=== PATIENT | female | born 1990 | race Caucasian/White ===

== ENCOUNTER 2018-09-29 13:45 | Outpatient (CLI) | payer BC, SELFPAY ==
[2018-09-29 14:35] LABS: HCT 40.6 % (36.0-46.0); HGB 13.9 g/dL (12.0-15.5); Mean Corp. HGB Concentration 34.2 g/dL (32.0-36.0); Mean Corpuscular Hemoglobin 31.2 pg (27.0-33.0); Mean Corpuscular Volume 91.2 fL (80-95); Mean Platelet Volume 10.5 fL (8.0-11.0); Platelet Count 217 x1000/uL (130-400); RBC 4.45 m/cumm (4.00-5.20); RBC Distribution Width 13.4 % (11.7-14.6); White Blood Cell Count 10.36 k/cumm (4.4-10.8)
[2018-09-29 14:36] LABS: Bilirubin Negative (Negative); Blood Negative (Negative); Clarity Clear; Glucose Negative (Negative); Ketones Negative (Negative); Leukocyte Esterase Negative (Negative); Nitrite Negative (Negative); Specific Gravity 1.015 (1.005-1.025); Urobilinogen 0.2 EU/dL (Up TO 0.2); pH 6.5 (5-8)
[2018-09-29 15:39] LABS: HCG Quant, Pregnancy < 1 mIU/mL (1-3)
== END 2018-09-29 14:05 ==
PROVIDERS: PCP Nurse Practitioner; Visit Provider Nurse Practitioner Women's Health
DX: R10.2 Pelvic and perineal pain (principal)
CPT/HCPCS: 36415; 85027; 81003; 84702

== ENCOUNTER 2019-06-08 13:50 | Outpatient (REF) | payer OTHER, SELFPAY ==
[2019-06-08 18:58] LABS: HCT 39.1 % (36.0-46.0); HGB 12.9 g/dL (12.0-15.5); Mean Corpuscular Hemoglobin 30.9 pg (27.0-33.0); Mean Corpuscular Volume 93.8 fL (80-95); Mean Platelet Volume 11.5 fL (8.0-11.0); Platelet Count 184 x1000/uL (130-400); RBC 4.17 m/cumm (4.00-5.20); RBC Distribution Width 13.3 % (11.7-14.6); White Blood Cell Count 7.09 k/cumm (4.4-10.8)
[2019-06-08 19:08] LABS: Iron 81 ug/dL (50-175)
[2019-06-08 19:21] LABS: Anion Gap 10.6 mmol/L (3-11); BUN 12 mg/dL (7-18); CO2 25.4 mmol/L (21.0-32.0); Calcium 8.6 mg/dL (8.5-10.1); Chloride 105 mmol/L (98-107); Glucose 97 mg/dL (70-100); Potassium 3.6 mmol/L (3.5-5.1); Sodium 141 mmol/L (136-145); TSH (W/Ref FT4) 1.08 uIU/mL (0.36-3.74)
[2019-06-08 20:19] LABS: Vitamin B12 707 pg/mL (193-986)
[2019-06-11 08:13] LABS: Vitamin D 25 Total 28.9 ng/ml (30-100)
== END 2019-06-08 14:10 ==
LOC: NCHCN 13:50
PROVIDERS: PCP Nurse Practitioner Family; Visit Provider Nurse Practitioner Family
DX: R53.83 Other fatigue (principal)
CPT/HCPCS: 80048; 82306; 85027; 82607; 83540; 84443

== ENCOUNTER 2019-06-21 11:58 | Emergency (ER) | payer OTHER, SELFPAY ==
[2019-06-21 12:01] VITALS: BP 124/78; PULSE 76; RESP 14; TEMP 37.1; O2SAT 98
--- NOTE | 2019-06-21 12:12 | DI.RAD_ITS ---
SYMPTOM/DIAGNOSIS: INJURY, PAIN RIGHT FOOT: Three views. There is an oblique fracture of the mid shaft of the proximal phalanx of the right little toe. The distal fracture is angulated laterally. No other fracture or dislocation is seen. There is soft tissue swelling noted. IMPRESSION: Displaced fracture involving the proximal phalanx of the right fifth toe.
--- NOTE | 2019-06-21 12:51 | ED.GENADUL_ITS ---
Discharge Plan Disposition Patient Disposition: HOME Condition: Stable Discharge Details Chief Complaint: Orthopedic Clinical Impression: Toe fracture, right Primary Care Provider: Neda Arnold ED Provider: Jaspal Kuhn Home Meds and New Rx's Prescriptions: No Action sertraline 50 mg tablet 25 mg PO DAILY Qty: 30 RF: 5 Kaila 1 EACH intrauterine device 1 ea Intrauterine DAILY Qty: 1 RF: 0 lorazepam [Ativan] 1 mg tablet 0.5 mg PO HS Qty: 30 RF: 3 ondansetron 4 MG tablet,disintegrating 4 mg PO Q8H PRN (Reason: Nausea) Qty: 12 RF: 0 cholecalciferol (vitamin D3) [Vitamin D3] 2,000 unit Tablet 2,000 unit PO DAILY RF: 0 Discharge Instructions Instructions: Toe Fracture (ED) Additional Instructions: You may continue to take [id number] pain medication as needed for discomfort and use the provided hard soled shoe or purchase shoe insert and use this for the next 4 weeks. Feel free to call podiatry office for arrangement of follow-up appointment as needed for reassessment. Stand Alone Forms: Work Release Referrals: Maurisio Wheeler DPM [[facility] STAFF PHYSICIAN] - (As needed for reassessment in the next 1 to 2 weeks) Discharge Data Discharge Date/Time-TO BE ENTERED AT DEPARTURE: 06/21/19 13:07 Medical Decision Making Right fifth digit toe injury that occurred this morning. Physical exam shows right fifth toe that has some lateral rotation otherwise unremarkable examination of the foot. Plan to do radiological imaging for concern of fracture versus dislocation. Review of radiologic imaging shows a fracture of the proximal phalanx of the fifth digit. Soham tape and hardsole shoe placed along with mild physical reduction. Patient to follow-up with Dr. Wheeler as needed. Patient given work note. Return precautions discussed. After discussion of diagnosis and plan of care patient has no further needs, questions, or concerns and states clear understanding to return to the emergency department for any worsening symptoms. HPI General Mode of arrival: ambulatory . Date/Time Provider Initiated Documentation: 06/21/19 12:08 . Limitations to Documentation: no limitations . Information obtained by: patient . History of Present Illness 29 year old F presents to the emergency department with the chief complaint of right 5th toe injury, described as mild, with intensity rated at 2. and is localized to the right and lower extremity. Patient started experiencing this hour(s) (2) and it has been constant. Movement worsens symptoms . Patient notes no other symptoms.. Related Data Home Medications Medication Instructions Recorded Confirmed Kaila 1 ea INTRAUTERINE DAILY #1 implant 10/02/15 06/21/19 ondansetron 4 mg PO Q8H PRN #12 tab.rapdis 12/09/17 06/21/19 lorazepam 1 mg tablet 0.5 mg PO HS #30 tab-cap 10/11/18 06/21/19 sertraline 50 mg tablet 25 mg PO DAILY #30 tab 11/03/18 06/21/19 cholecalciferol (vitamin D3) 2,000 unit PO DAILY 06/21/19 06/21/19 [Vitamin D3] Previous Rx's Medication Instructions Recorded ondansetron 4 mg PO Q8H PRN #12 tab.rapdis 12/09/17 lorazepam 1 mg tablet 0.5 mg PO HS #30 tab-cap 10/11/18 sertraline 50 mg tablet 25 mg PO DAILY #30 tab 11/03/18 Allergies Allergy/AdvReac Type Severity Reaction Status Date / Time No Known Allergies Allergy Unverified 06/21/19 12:08 General Stated Complaint: Orthopedic TAMIKO: 4 Review of Systems Musculoskeletal Reports as per HPI, Denies numbness and Denies tingling Integumentary/Breasts Denies rash, Denies sores and Denies wounds Neurologic Denies numbness and Denies tingling PFSH Medical History Cholelithiasis GERD (gastroesophageal reflux disease) Surgical History Cholecystectomy Social History Smoking/Tobacco Use Status: Never Alcohol Intake: never Drug use: Never Substance use type: does not use Number of Children: 1 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 What type of physical activity do you participate in: none Do you feel safe at home: Yes Do you feel safe in your relationship?: Yes Exam Const General: cooperative and no acute distress Orientation: alert, awake and oriented x3 Resp Effort & Inspection: normal respiratory effort and able to speak in complete sentences Cardio Rate: regular rate Rhythm: regular rhythm Extrem General: normal exam except as noted Left lower extremity: foot Details: abnormal to inspection Details: a deformity Location: of the 5th digit (Lateral rotation), tenderness Location: of another digit Location: the 5th digit; not of the base of the 5th metatarsal, abnormal ROM of toe Details: pain with active ROM Location: of the 5th digit and pain with passive ROM Location: of the 5th digit and vascular exam Details: dorsalis pedis pulse present and normal capillary refill Course Vital Signs Temperature 37.1 C 06/21/19 12:01 Pulse 76 06/21/19 12:01 Respiratory Rate 14 06/21/19 12:01 Blood Pressure 124/78 06/21/19 12:01 Pulse Oximetry 98 06/21/19 12:01 Temperature 37.1 C 06/21/19 12:01 Temperature Source Skin 06/21/19 12:01 Pulse 76 06/21/19 12:01 Respiratory Rate 14 06/21/19 12:01 Respiratory Effort 06/21/19 12:07 Blood Pressure 124/78 06/21/19 12:01 Blood Pressure Position Sitting 06/21/19 12:01 Pulse Oximetry 98 06/21/19 12:01 Oxygen Delivery Method Room Air 06/21/19 12:01 Oxygen Flow Rate 0 06/21/19 12:01 Pain Level 2 06/21/19 12:01 Comment 06/21/19 12:01
[2019-06-21 13:00] VITALS: BP 124/78; PULSE 76; RESP 14; TEMP 37.1; O2SAT 98
== END 2019-06-21 13:07 | disposition home or self-care (01) ==
LOC: ER 13:04
PROVIDERS: Emergency Provider Nurse Practitioner Family; PCP Nurse Practitioner Family
DX: S92.511A Displaced fracture of proximal phalanx of right lesser toe(s), initial encounter for closed fracture (principal); W22.03XA Walked into furniture, initial encounter
CPT/HCPCS: 28510; 73630

== ENCOUNTER 2019-07-19 16:27 | Outpatient (REF) | payer OTHER, SELFPAY ==
--- NOTE | 2019-07-19 16:10 | PAPFT_PTH ---
PATIENT: Ailyn Webb LOC: [facility] U#:[id number] AGE/SX: 29/F ROOM: RE07/19/[address]: Heather Christie MD : 1990 BED: DIS: 07/19/2019 SPEC #: [id number] RECD: 07/19/19 17:48 STATUS: ROC REQ #: [id number] EDNA: 07/19/19 16:[address]: Heather Christie DEPT: [facility] Cytology RECD BY: Lachelle Nicholson ENTERED: 07/19/19 17:49 SP TYPE: PAPFT OTHR DR: Neda Arnold Tissues: 1 - CX/ENDOCX FOR PAP SMEARS Procedures: PAP THIN PREP/[facility] Screening Comments: [id number]
== END 2019-07-19 16:47 ==
LOC: LBN 16:27
PROVIDERS: PCP Nurse Practitioner Family; Visit Provider Obstetrics & Gynecology
DX: Z12.4 Encounter for screening for malignant neoplasm of cervix (principal)
CPT/HCPCS: 88142

== ENCOUNTER 2019-11-13 13:21 | Outpatient (REF) | payer OTHER, SELFPAY ==
[2019-11-13 14:07] LABS: Bilirubin Negative (Negative); Blood Trace-intact (Negative); Clarity Clear (Clear); Glucose Negative (Negative); Ketones Negative (Negative); Leukocyte Esterase Negative (Negative); Nitrite Negative (Negative); Specific Gravity <= 1.005 (1.005-1.025); Urobilinogen 0.2 EU/dL (Up TO 0.2)
[2019-11-13 14:22] LABS: Bacteria Negative HPF (Negative); C & S Indicated? No; Casts Negative LPF (Negative); Crystals Negative HPF (Negative); Epithelial Cells Rare HPF (Negative); Mucus Negative (Negative); WBC 0-2 HPF (0-5)
== END 2019-11-13 13:41 ==
LOC: NCHCN 13:21
PROVIDERS: PCP Nurse Practitioner Family; Visit Provider Nurse Practitioner Family
DX: R39.9 Unspecified symptoms and signs involving the genitourinary system (principal)
CPT/HCPCS: 81003; 81015

== ENCOUNTER 2020-11-28 11:29 | Outpatient (CLI) | payer OTHER, SELFPAY ==
--- NOTE | 2020-11-28 11:15 | DI.RAD_ITS ---
EXAM: XR KNEE LT 3V AP,LAT,CALLUM CLINICAL HISTORY: L medial knee pain. TECHNIQUE: 2D digital imaging was performed. COMPARISON: No exams were available for comparison FINDINGS: There is no evidence of fracture or joint effusion. No degenerative changes. No osseous lesions nor osteochondral defects. Bone density is age-appropriate IMPRESSION: No significant radiographic findings on these three views of the left knee. DATA REPOSITORY: RADIATION DOSE DELIVERED:
== END 2020-11-28 11:49 ==
PROVIDERS: PCP Student in an Organized Health Care Education/Training Program; Referring Provider Student in an Organized Health Care Education/Training Program; Visit Provider Student in an Organized Health Care Education/Training Program
DX: M25.562 Pain in left knee (principal)
CPT/HCPCS: 73562

== ENCOUNTER 2020-12-12 03:13 | Outpatient (CLI) | payer OTHER, SELFPAY ==
--- NOTE | 2020-12-12 07:00 | DI.MRI_ITS ---
EXAM: MR LOWER JOINT LT WO CLINICAL HISTORY: locking and pain of L knee,INTERNAL DERANGEMENT,M23.92. TECHNIQUE: Multiplanar multisequence MRI was performed. COMPARISON: CR XR KNEE LT 3V AP,LAT,CALLUM from 11/28/2020 CR XR KNEE LT 3V AP,LAT,CALLUM from 11/28/2020 FINDINGS: There is a somewhat linear area of low T1, high T2 signal in the medial tibial metaphysis which is weathers spicious for a hairline fracture. There is some surrounding edema in the medial tibial plateau. The articular surfaces are not involved. There is mild edema in the distal femoral metaphysis and media l femoral condyle that is not linear. The cruciate and collateral ligaments and extensor mechanism appear intact. There is normal quantity of joint fluid. There is a small amount of amorphous intermediate signal in the posterior horn of t he medial meniscus but no evidence of a discrete tear. The cartilage over the patella, femoral condy les and tibial plateaus appears intact. IMPRESSION: Findings consistent with incomplete hairline fracture of the medial tibial metaphysis. No ligament or meniscal tear is seen. DATA REPOSITORY:
== END 2020-12-12 03:14 ==
LOC: DI 03:14
PROVIDERS: PCP Student in an Organized Health Care Education/Training Program; Visit Provider Student in an Organized Health Care Education/Training Program
DX: M23.92 Unspecified internal derangement of left knee (principal); M25.562 Pain in left knee
CPT/HCPCS: 73721

== ENCOUNTER 2020-12-31 17:41 | Outpatient (REF) | payer OTHER, SELFPAY ==
[2020-12-31 18:30] LABS: Abs Immature Grans 0.02 10^3/uL (0.0-0.06); Absolute Basophil Count 0.04 10^3/uL (0.0-0.2); Absolute Lymphocyte Count 2.95 10^3/uL (1.2-3.4); Absolute Monocyte Count 0.59 10^3/uL (0.1-0.8); Absolute Neutrophil Count 5.14 10^3/uL (1.2-6.7); Basophils % 0.5; Eosinophils % 1.1; HCT 38.6 % (36.0-46.0); Immature Grans % 0.2; Lymphocytes % 33.4; MCH 30.6 pg (27.0-33.0); MCHC 33.7 % (32.0-36.0); MCV 90.8 fL (80-95); MPV 10.9 fL (8.0-11.0); Monocytes % 6.7; Neutrophils % 58.1; Nucleated RBC 0 %; Platelet Count 216 10^3/uL (130-400); RBC 4.25 10^6/uL (3.93-5.22); RDW 12.7 % (11.7-14.6); RDW-SD 41.8 fL; WBC 8.84 10^3/uL (4.4-10.8)
[2020-12-31 20:12] LABS: ALT 25 U/L (14-59); AST 16 U/L (15-37); Albumin 4.4 g/dL (3.4-5.0); Alkaline Phosphatase 62 U/L (46-116); BUN 17 mg/dL (7-18); Bilirubin, Total 0.4 mg/dL (0.2-1.0); CO2 24.9 mmol/L (21.0-32.0); CREATININE 0.7 mg/dL (0.55-1.02); Glucose 98 mg/dL (74-106); Magnesium 2.1 mg/dL (1.8-2.4); Total Protein 7.5 g/dL (6.4-8.2)
[2020-12-31 20:16] LABS: Anion Gap 10.1 mmol/L (3-11); Chloride 105 mmol/L (98-107); Potassium 3.2 mmol/L (3.5-5.1); Sodium 140 mmol/L (136-145)
[2021-01-01 05:06] LABS: Vitamin D 25 Total 42.2 ng/ml (30-100)
== END 2020-12-31 17:42 | disposition home or self-care (01) ==
LOC: LBN 17:41
PROVIDERS: PCP Student in an Organized Health Care Education/Training Program; Visit Provider Student in an Organized Health Care Education/Training Program
DX: D64.9 Anemia, unspecified (principal); R53.83 Other fatigue; E46 Unspecified protein-calorie malnutrition; K21.9 Gastro-esophageal reflux disease without esophagitis; R93.7 Abnormal findings on diagnostic imaging of other parts of musculoskeletal system
CPT/HCPCS: 80053; 82306; 83735; 85025

== ENCOUNTER 2021-01-27 08:50 | Outpatient (CLI) | payer OTHER, SELFPAY ==
--- NOTE | 2021-01-27 10:00 | DI.DEXA_ITS ---
EXAM: XR DEXA BONE DENSITY W/WO JOSEPHINE CLINICAL HISTORY: Insufficiency fx of tibia, internal derangement of lt knee, M84.496S,M23.92 TECHNIQUE: Routine DEXA evaluation of the lumbar spine, hip, or forearm. COMPARISON: No exams were available for comparison FINDINGS: Performed on a Hologic unit. Lateral image: No compression fracture evident. Lumbar Spine total T-score: -2.0 Hip total T-score:-1.9. Independent reading at the femoral neck yields a T-score of -2.2 Forearm total T-score: -1.8 IMPRESSION: Bone mineral density measures in the osteopenia range. Fracture risk is moderate. Note: Any spine fracture indicates 5x risk for subsequent spine fracture and 2x risk for subsequent h ip fracture. World Health Organization criteria for BMD interpretation classify patients: Normal...... T- Score at or above -1.0 Osteopenic... T- Score between -1.0 and -2.5 Osteoporosis... T-Score at or below -2.5
== END 2021-01-27 09:10 ==
PROVIDERS: PCP Student in an Organized Health Care Education/Training Program; Visit Provider Student in an Organized Health Care Education/Training Program
DX: M85.88 Other specified disorders of bone density and structure, other site (principal); M23.92 Unspecified internal derangement of left knee; M84.46 Pathological fracture, tibia and fibula
CPT/HCPCS: 77080

== ENCOUNTER 2021-02-21 11:10 | Outpatient (CLI) | payer OTHER, SELFPAY ==
[2021-02-21 13:33] LABS: Calcium 8.8 mg/dL (8.5-10.1); TSH 0.99 uIU/mL (0.36-3.74)
[2021-02-23 11:30] LABS: Parathyroid Hormone,Intact 35 pg/mL (19-88)
== END 2021-02-21 11:11 | disposition home or self-care (01) ==
LOC: LBO 11:13
PROVIDERS: PCP Student in an Organized Health Care Education/Training Program; Visit Provider Internal Medicine Endocrinology, Diabetes & Metabolism
DX: M81.0 Age-related osteoporosis without current pathological fracture (principal)
CPT/HCPCS: 36415; 82310; 82340; 83970; 84443

== ENCOUNTER 2021-10-02 16:05 | Outpatient (CLI) | payer OTHER, SELFPAY ==
[2021-10-02 17:56] LABS: ALT 24 U/L (14-59); AST 18 U/L (15-37); Albumin 4.4 g/dL (3.4-5.0); Alkaline Phosphatase 47 U/L (46-116); Anion Gap 12.8 mmol/L (3-11); BUN 16 mg/dL (7-18); Bilirubin, Total 0.4 mg/dL (0.2-1.0); CO2 26.2 mmol/L (21.0-32.0); CREATININE 0.7 mg/dL (0.55-1.02); Calcium 9.2 mg/dL (8.5-10.1); Chloride 101 mmol/L (98-107); Folate 12.2 ng/mL (8.6-20.0); Glucose 86 mg/dL (74-106); Magnesium 2.1 mg/dL (1.8-2.4); Potassium 3.6 mmol/L (3.5-5.1); Sodium 140 mmol/L (136-145); Total Protein 7.4 g/dL (6.4-8.2); Vitamin B12 1089 pg/mL (193-986)
[2021-10-05 00:30] LABS: Vitamin D 25 Total 40.8 ng/mL (30-100)
== END 2021-10-02 16:06 | disposition home or self-care (01) ==
LOC: LBO 16:07
PROVIDERS: PCP Student in an Organized Health Care Education/Training Program; Visit Provider Student in an Organized Health Care Education/Training Program
DX: E87.6 Hypokalemia; K90.9 Intestinal malabsorption, unspecified; R42 Dizziness and giddiness; G62.9 Polyneuropathy, unspecified; E83.42 Hypomagnesemia
CPT/HCPCS: 36415; 80053; 82306; 82607; 82746; 83735

== ENCOUNTER 2022-01-29 00:39 | Outpatient (CLI) | payer OTHER, SELFPAY ==
--- NOTE | 2022-01-29 13:45 | DI.MRI_ITS ---
Exam(s) MR LOWER JOINT LT WO EXAM: MR LOWER JOINT LT WO CLINICAL HISTORY: ? STRESS FX ON LT,REEVALUATE. TECHNIQUE: Multiplanar multisequence MRI was performed. COMPARISON: MR MR LOWER JOINT LT WO from 12/12/2020 FINDINGS: BONES: There is no fracture or contusion pattern. The proximal metaphyseal fracture appears healed. There is normal signal in the bone marrow. JOINTS: Articular cartilage is unremarkable. No effusion is present. TENDONS: Extensor mechanism: Unremarkable. Medial retinaculum: Unremarkable. Lateral retinaculum: Unremarkable. Popliteus: Unremarkable. MUSCLES: Unremarkable. MENISCI: No evidence of a tear. There is again seen nonspecific intermediate signal in the posterior horn of the medial meniscus. The lateral meniscus is unremarkable. SOFT TISSUES: Unremarkable. LIGAMENTS: Anterior Cruciate: Unremarkable. Posterior Cruciate: Unremarkable. Medial Collateral:Unremarkable. Lateral Collateral: Unremarkable. OTHER: IMPRESSION: 1. Resolution of the proximal tibial fracture. No acute fracture is identified. 2. No acute meniscal or ligament tear. DATA REPOSITORY:
--- NOTE | 2022-01-29 14:30 | DI.MRI_ITS ---
Exam(s) MR LOWER JOINT RT WO EXAM: MR LOWER JOINT RT WO CLINICAL HISTORY: RT KNEE PAIN, ? HAIRLINE FX. TECHNIQUE: Multiplanar multisequence MRI was performed. COMPARISON: MR MR LOWER JOINT LT WO from 01/29/2022 FINDINGS: BONES: There is no fracture or contusion pattern. JOINTS: Articular cartilage is unremarkable. No effusion is present. TENDONS: Extensor mechanism: Unremarkable. Medial retinaculum: Unremarkable. Lateral retinaculum: Unremarkable. Popliteus: Unremarkable. MUSCLES: Unremarkable. MENISCI: The medial meniscus is unremarkable. The lateral meniscus is unremarkable. SOFT TISSUES: Unremarkable. LIGAMENTS: Anterior Cruciate: Unremarkable. Posterior Cruciate: Unremarkable. Medial Collateral:Unremarkable. Lateral Collateral: Unremarkable. OTHER: There is a small cyst associated with the proximal tibial fibular joint. It has a benign appe arance. IMPRESSION: 1. No evidence of an occult fracture or avascular necrosis. 2. No evidence of a meniscal or ligament tear. DATA REPOSITORY:
== END 2022-01-29 00:59 ==
PROVIDERS: PCP Student in an Organized Health Care Education/Training Program; Visit Provider Student in an Organized Health Care Education/Training Program
DX: M25.561 Pain in right knee (principal); Z87.81 Personal history of (healed) traumatic fracture
CPT/HCPCS: 73721

== ENCOUNTER 2022-02-23 19:01 | Outpatient (REF) | payer OTHER, SELFPAY ==
[2022-02-23 09:43] LABS: Source Nasal/Nares
[2022-02-23 10:42] LABS: COVID-19 PCR Negative (Negative)
== END 2022-02-23 19:02 | disposition home or self-care (01) ==
LOC: LBN 19:01
PROVIDERS: PCP Student in an Organized Health Care Education/Training Program; Visit Provider Obstetrics & Gynecology
DX: Z20.822 Contact with and (suspected) exposure to COVID-19 (principal)
CPT/HCPCS: 87635

== ENCOUNTER 2022-02-26 16:30 | Outpatient (REF) | payer OTHER, SELFPAY ==
[2022-02-28 07:22] LABS: Influenza B RNA Result Negative (Negative); RSV RNA Result Negative (Negative)
[2022-02-28 09:21] LABS: Influenza A RNA Result Positive (Negative)
== END 2022-02-26 16:31 | disposition home or self-care (01) ==
LOC: LBN 16:30
PROVIDERS: PCP Student in an Organized Health Care Education/Training Program; Visit Provider Family Medicine
DX: J06.9 Acute upper respiratory infection, unspecified (principal); R09.89 Other specified symptoms and signs involving the circulatory and respiratory systems
CPT/HCPCS: 87631

== ENCOUNTER 2022-03-04 12:27 | Outpatient (CLI) | payer OTHER, SELFPAY | END 2022-03-04 12:28 | disposition home or self-care (01) | LOC: LBO 12:29 | PROVIDERS: PCP Student in an Organized Health Care Education/Training Program; Visit Provider Obstetrics & Gynecology ==

== ENCOUNTER 2022-05-06 16:02 | Outpatient (REF) | payer OTHER, SELFPAY ==
--- NOTE | 2022-05-06 15:45 | PAPFT_PTH ---
PATIENT: Ailyn Webb LOC: [facility] U#:[id number] AGE/SX: 32/F ROOM: RE05/06/[address]: Bonita Salcido : 1990 BED: DIS: 05/06/2022 SPEC #: [id number] RECD: 05/07/22 09:15 STATUS: ROC REDenis #: [id number] EDNA: 05/06/22 15:[address]: Bonita Salcido DEPT: [facility] Cytology RECD BY: Tanesha Pillai ENTERED: 05/07/22 09:18 SP TYPE: PAPFT OTHR DR: Farida Samuels DO Tissues: 1 - CX/ENDOCX FOR PAP SMEARS Procedures: PAP THIN PREP/[facility] Screening HPV DNA PROBE Comments: [id number]
== END 2022-05-06 16:03 | disposition home or self-care (01) ==
LOC: LBN 16:02
PROVIDERS: PCP Student in an Organized Health Care Education/Training Program; Visit Provider Obstetrics & Gynecology Gynecology
DX: Z12.4 Encounter for screening for malignant neoplasm of cervix (principal); Z11.51 Encounter for screening for human papillomavirus (HPV)
CPT/HCPCS: 88142; 87624

== ENCOUNTER 2022-06-07 04:02 | Outpatient (CLI) | payer OTHER, SELFPAY ==
[2022-06-07 10:27] LABS: Anion Gap 6.6 mmol/L (3-11); BUN 11 mg/dL (7-18); CO2 28.4 mmol/L (21.0-32.0); CREATININE 0.6 mg/dL (0.55-1.02); Calcium 8.9 mg/dL (8.5-10.1); Chloride 102 mmol/L (98-107); Glucose 74 mg/dL (74-106); Magnesium 1.9 mg/dL (1.8-2.4); Potassium 3.6 mmol/L (3.5-5.1); Sodium 137 mmol/L (136-145)
== END 2022-06-07 04:03 | disposition home or self-care (01) ==
LOC: LBO 04:02
PROVIDERS: PCP Student in an Organized Health Care Education/Training Program; Visit Provider Student in an Organized Health Care Education/Training Program
DX: E87.6 Hypokalemia (principal); E46 Unspecified protein-calorie malnutrition; K21.9 Gastro-esophageal reflux disease without esophagitis
CPT/HCPCS: 36415; 80048; 83735

== ENCOUNTER 2022-08-13 09:41 | Outpatient (CLI) | payer OTHER, SELFPAY ==
--- NOTE | 2022-08-13 09:45 | RT.EKG_ITS ---
APPROVED REPORT Exam: Resting ECG Reason for Exam: request of Sonali Akers Patient Location: O HR:66 bpm ECG Measurements Heart Rate 66 AXIS AZ 153 P 91 QRSd 102 QRS 51 QT 393 T 31 QTc 412 Conclusion Sinus rhythm...normal P axis, V-rate 50- 99 Normal Electrocardiogram
== END 2022-08-13 09:42 | disposition home or self-care (01) ==
PROVIDERS: PCP Student in an Organized Health Care Education/Training Program; Visit Provider Student in an Organized Health Care Education/Training Program
DX: R00.2 Palpitations
CPT/HCPCS: 93010

== ENCOUNTER → 2022-08-17 02:49 | Outpatient (CLI) | payer OTHER, SELFPAY ==
--- NOTE | 2022-08-17 06:30 | DI.RAD_ITS ---
Exam(s) XR CHEST 2V PA LATERAL EXAM: XR CHEST 2V PA LATERAL CLINICAL HISTORY: eval for pericardial effusion,HEART PALPITATIONS,R00.2 TECHNIQUE: 2D digital imaging was performed of the chest. Two images were obtained. PA and lateral views were obtained. COMPARISON: CR ABD FLAT UPRIGHT PA CHEST from 02/13/2011 FINDINGS: MEDIASTINUM: Normal. HEART: Normal. Cardiac silhouette has a normal appearance. PULMONARY VASCULATURE: Normal. LUNGS: Clear. PLEURAL SPACE: No pleural effusion or pneumothorax. BONE:Within normal limits for the patient's age. OTHER FINDINGS:Normal. IMPRESSION: No acute pulmonary findings. DATA REPOSITORY: RADIATION DOSE DELIVERED:
== END ==
PROVIDERS: PCP Student in an Organized Health Care Education/Training Program; Visit Provider Student in an Organized Health Care Education/Training Program
DX: R00.2 Palpitations (principal); R06.02 Shortness of breath
CPT/HCPCS: 71046

== ENCOUNTER 2022-08-17 14:15 | Outpatient (CLI) | payer OTHER, SELFPAY | END 2022-08-17 14:16 | disposition home or self-care (01) | PROVIDERS: PCP Student in an Organized Health Care Education/Training Program; Visit Provider Student in an Organized Health Care Education/Training Program | DX: R00.2 Palpitations (principal) | CPT/HCPCS: 93246 ==

== ENCOUNTER 2022-09-20 10:10 | Outpatient (CLI) | payer OTHER, SELFPAY ==
--- NOTE | 2022-09-20 10:23 | W.CARDEVENT ---
Date of service: 09/20/22 Time of Service: 10:23 Cardiac Event Recorder Referring Provider:: Farida Samuels Indications:: Palpitations Cardiac Event Note: This is a cardiac event monitor ordered for palpitations Rhythm throughout was sinus with an average heart rate of 78. Minimum was 49, maximum 165 A total of 10 isolated premature ventricular contractions were recorded There was no atrial fibrillation, no high-grade AV block, no supraventricular tachycardia, no pauses greater than 3 seconds Patient symptoms were reported. These were associated with sinus rhythm at 70, sinus tachycardia at 104, sinus rhythm at 68, sinus rhythm at 81, sinus rhythm at 97. There was no correlation to any significant dysrhythmia
== END 2022-09-20 10:11 | disposition home or self-care (01) ==
LOC: CARDOPNVT 10:10
PROVIDERS: PCP Student in an Organized Health Care Education/Training Program; Visit Provider Internal Medicine Cardiovascular Disease
DX: R00.2 Palpitations (principal); I49.3 Ventricular premature depolarization
CPT/HCPCS: 93248

== ENCOUNTER 2022-10-21 12:54 | Outpatient (CLI) | payer OTHER, SELFPAY ==
[2022-10-21 13:30] LABS: Abs Immature Grans 0.03 10^3/uL (0.0-0.06); Absolute Basophil Count 0.06 10^3/uL (0.0-0.2); Absolute Eosinophil Count 0.24 10^3/uL (0.0-0.7); Absolute Monocyte Count 0.65 10^3/uL (0.1-0.8); Absolute Neutrophil Count 4.89 10^3/uL (1.2-6.7); Basophils % 0.8; Eosinophils % 3.1; HGB 12.8 g/dL (11.2-15.7); Immature Grans % 0.4; Lymphocytes % 24.5; MCH 31.1 pg (27.0-33.0); MCHC 32.8 % (32.0-36.0); MCV 95 fL (80-95); MPV 10.6 fL (8.0-11.0); Monocytes % 8.4; Neutrophils % 62.8; Platelet Count 210 10^3/uL (130-400); RBC 4.11 10^6/uL (3.93-5.22); RDW 13.2 % (11.7-14.6); RDW-SD 46.4 fL; WBC 7.77 10^3/uL (4.4-10.8)
[2022-10-21 14:24] LABS: ALT 33 U/L (14-59); AST 25 U/L (15-37); Albumin 4.1 g/dL (3.4-5.0); Alkaline Phosphatase 60 U/L (46-116); Anion Gap 10.5 mmol/L (3-11); BUN 16 mg/dL (7-18); Bilirubin, Total 0.2 mg/dL (0.2-1.0); CO2 24.5 mmol/L (21.0-32.0); CREATININE 0.7 mg/dL (0.55-1.02); Calcium 8.9 mg/dL (8.5-10.1); Chloride 102 mmol/L (98-107); Estimated GFR 118.51 (mL/min/1.73m2); Glucose 100 mg/dL (74-106); Potassium 3.9 mmol/L (3.5-5.1); Sodium 137 mmol/L (136-145); Total Protein 7.8 g/dL (6.4-8.2)
[2022-10-23 11:34] LABS: Creatine Kinase 107 U/L (26 - 192)
[2022-11-17 15:49] LABS: BB Fraction 0 % (0); MB Fraction 0 % (0)
== END 2022-10-21 12:55 | disposition home or self-care (01) ==
LOC: LBO 12:54
PROVIDERS: PCP Student in an Organized Health Care Education/Training Program; Visit Provider Registered Nurse
DX: G25.79 Other drug induced movement disorders (principal)
CPT/HCPCS: 36415; 80048; 80053; 82550; 82552; 85025

== ENCOUNTER 2022-10-27 11:21 | Outpatient (REF) | payer OTHER, SELFPAY ==
[2022-10-28 22:02] LABS: Influenza A RNA Result Negative (Negative); Influenza B RNA Result Negative (Negative); RSV RNA Result Negative (Negative)
[2022-10-28 22:07] LABS: COVID-19 RT-PCR UVMMC Result Negative (Negative)
== END 2022-10-27 11:22 | disposition home or self-care (01) ==
LOC: LBN 11:21
PROVIDERS: Nurse Practitioner; PCP Student in an Organized Health Care Education/Training Program; Visit Provider Student in an Organized Health Care Education/Training Program
DX: J02.9 Acute pharyngitis, unspecified (principal); R50.9 Fever, unspecified; R05.8 Other specified cough; R53.83 Other fatigue; Z20.822 Contact with and (suspected) exposure to COVID-19
CPT/HCPCS: 87631; U0003; 87070

== ENCOUNTER 2023-03-03 14:22 | Outpatient (CLI) | payer OTHER, SELFPAY ==
--- NOTE | 2023-03-03 09:25 | DI.RAD_ITS ---
Exam(s) XR CHEST 2V PA LATERAL EXAM: XR CHEST 2V PA LATERAL CLINICAL HISTORY: r/o pna, J18.9 - exposure, COUGH, CONTACT WITH OTHER COMMUNICABLE DISEASE, TECHNIQUE: 2D digital imaging was performed of the chest. Two images were obtained. PA and lateral views were obtained. COMPARISON: CR XR CHEST 2V PA LATERAL from 08/17/2022 FINDINGS: MEDIASTINUM: Normal. HEART: Normal. PULMONARY VASCULATURE: Normal. LUNGS: Clear. PLEURAL SPACE: No pleural effusion or pneumothorax. BONE:Within normal limits for the patient's age. OTHER FINDINGS:Normal. IMPRESSION: No acute pulmonary findings. DATA REPOSITORY: RADIATION DOSE DELIVERED:
--- NOTE | 2023-03-03 09:25 | DI.RAD_ITS ---
Exam(s) XR FOOT LT COMPLETE EXAM: XR FOOT LT COMPLETE CLINICAL HISTORY: r/o Fx .. eval for stress Fx, LT FOOT PAIN, M79.672, M84.30XA. TECHNIQUE: 2D digital imaging was performed of the left foot. Three images were obtained. AP, obli que and lateral views were obtained. COMPARISON: No exams were available for comparison FINDINGS: BONES: No acute fracture is present. No bony destructive lesion is seen. There does appear to be janice t periosteal reaction at the medial aspect of the distal shaft of the 3rd metatarsal seen on the obli que view. No lytic or sclerotic lesion is seen in the bone. JOINTS: No dislocation present. SOFT TISSUE: Normal. IMPRESSION: Faint periosteal reaction seen at the distal diaphysis of the 3rd metatarsal. This may represent a h ealing fracture. Please correlate with patient's site of pain. An MRI may be considered for further evaluation. Neoplastic process is considered less likely. DATA REPOSITORY: RADIATION DOSE DELIVERED:
== END 2023-03-03 14:42 ==
LOC: DI 14:23
PROVIDERS: PCP Student in an Organized Health Care Education/Training Program; Visit Provider Student in an Organized Health Care Education/Training Program
DX: M79.672 Pain in left foot (principal); M84.30XA Stress fracture, unspecified site, initial encounter for fracture; R05.9 Cough, unspecified; Z20.89 Contact with and (suspected) exposure to other communicable diseases; J18.9 Pneumonia, unspecified organism
CPT/HCPCS: 71046; 73630

== ENCOUNTER 2023-03-04 18:00 | Outpatient (CLI) | payer OTHER, SELFPAY ==
--- NOTE | 2023-03-04 | DI.RAD_ITS ---
Exam(s) XR FOOT LT COMPLETE EXAM: XR FOOT LT COMPLETE CLINICAL HISTORY: Pt. has stress fx on LT metatarsal seen x-ray x2 day ago; reinjured foot. TECHNIQUE: 2D digital imaging was performed. COMPARISON: CR XR FOOT LT COMPLETE from 03/03/2023 FINDINGS: 3 views No evidence of fracture nor diastasis of the Lisfranc joint. Bone density normal. The previously described small density off the medial cortex of the 3rd metatarsal is noted, unchange d. Doubtful significance. No significant lytic osseous lesions. No radiopaque foreign body. IMPRESSION: No significant acute osseous findings. DATA REPOSITORY: RADIATION DOSE DELIVERED:
--- NOTE | 2023-03-04 18:55 | DI.VRAD_ITS ---
PROCEDURE INFORMATION: Exam: XR Left Foot Exam date and time: 03/04/2023 18:38 Age: 33 years old Clinical indication: Injury or trauma; Fall; Other: Fell down stairs; Injury details: PT. Has presumed stress FX of left metatarsal seen on x-ray 2 days ago. Re injured this foot last night TECHNIQUE: Imaging protocol: Radiologic exam of the left foot. Views: 3 or more views. COMPARISON: CR XR FOOT LT COMPLETE 03/03/2023 09:19 FINDINGS: Bones/joints: No acute fracture or subluxation. Third metatarsal lesion previously described, no convincing underlying cortical anomaly however as described potential age-indeterminate stress fracture. A meniscal exostosis is also possible versus a chondral lesion. Potential extremely faint periostitis at this location. Soft tissues: Normal. IMPRESSION: No change. Dictated and Authenticated by: Sharyn Okeefe MD. Ordering:ANEUDY Archer MD
== END 2023-03-04 18:20 ==
PROVIDERS: PCP Student in an Organized Health Care Education/Training Program; Visit Provider Physician Assistant Medical
DX: M79.672 Pain in left foot (principal)
CPT/HCPCS: 73630

== ENCOUNTER 2023-03-07 15:43 | Outpatient (CLI) | payer OTHER, SELFPAY ==
--- NOTE | 2023-03-07 | DI.MRI_ITS ---
Exam(s) MR LOWER EXTREMITY LT WO CLINICAL HISTORY: PAIN LT FOOT, M79.672, ? STRESS FRACTURE, ABNL XRAY 03/03. TECHNIQUE: Multiplanar multisequence MRI was performed. CONTRAST MATERIAL: Noncontrast COMPARISON: Plain films 03 March and 04 Mar 2023 FINDINGS: BONES/JOINTS: There is edema seen within the mid to distal shaft of the 3rd metatarsal. No discrete fracture line is identified. The findings are consistent with a stress fracture. The remaining visu alized bones show normal marrow signal. No bony erosions. MUSCULOTENDINOUS STRUCTURES: No tendon abnormality is identified. SOFT TISSUES: Edema in the soft tissues surrounding the mid to distal shaft of the 3rd metatarsal. N o drainable collection. IMPRESSION: Findings consistent with stress fracture of the 3rd metatarsal. DATA REPOSITORY:
== END 2023-03-07 16:03 ==
LOC: DI 15:44
PROVIDERS: PCP Student in an Organized Health Care Education/Training Program; Visit Provider Physician Assistant Medical
DX: M79.672 Pain in left foot (principal); M84.376A Stress fracture, unspecified foot, initial encounter for fracture
CPT/HCPCS: 73718

== ENCOUNTER 2023-03-18 19:16 | Outpatient (REF) | payer OTHER, SELFPAY ==
[2023-03-18 18:51] LABS: Abs Immature Grans 0.03 10^3/uL (0.0-0.06); Absolute Basophil Count 0.07 10^3/uL (0.0-0.2); Absolute Eosinophil Count 0.13 10^3/uL (0.0-0.7); Absolute Lymphocyte Count 2.61 10^3/uL (1.2-3.4); Absolute Monocyte Count 0.56 10^3/uL (0.1-0.8); Absolute Neutrophil Count 3.98 10^3/uL (1.2-6.7); Basophils % 0.9; Eosinophils % 1.8; HCT 41.9 % (36.0-46.0); Immature Grans % 0.4; Lymphocytes % 35.4; MCH 30.8 pg (27.0-33.0); MCHC 33.4 % (32.0-36.0); MCV 92 fL (80-95); MPV 11.2 fL (8.0-11.0); Monocytes % 7.6; Neutrophils % 53.9; Platelet Count 212 10^3/uL (130-400); RBC 4.55 10^6/uL (3.93-5.22); RDW-SD 47.8 fL; WBC 7.38 10^3/uL (4.4-10.8)
[2023-03-18 19:05] LABS: Iron 119 ug/dL (50-170); Total Iron Binding Capacity 417 ug/dL (250-450); Transferrin Sat 29 % (15-50)
[2023-03-18 19:25] LABS: Hemoglobin A1C 5.4 % (<5.7)
[2023-03-18 19:30] LABS: Vitamin D 25 Total 30.2 ng/mL (30-100)
[2023-03-18 19:38] LABS: ALT 32 U/L (14-59); AST 28 U/L (15-37); Albumin 4.2 g/dL (3.4-5.0); Alkaline Phosphatase 54 U/L (46-116); Anion Gap 9.5 mmol/L (3-11); BUN 15 mg/dL (7-18); Bilirubin, Total 0.3 mg/dL (0.2-1.0); CO2 25.5 mmol/L (21.0-32.0); CREATININE 0.6 mg/dL (0.55-1.02); Chloride 103 mmol/L (98-107); Estimated GFR 122.23 (mL/min/1.73m2); Ferritin 32 ng/mL (8-252); Folate > 20.0 ng/mL (8.6-20.0); Glucose 130 mg/dL (74-106); Magnesium 1.8 mg/dL (1.8-2.4); Potassium 4.2 mmol/L (3.5-5.1); Sodium 138 mmol/L (136-145); TSH (W/Ref FT4) 1.68 uIU/mL (0.36-3.74); Total Protein 8.3 g/dL (6.4-8.2); Vitamin B12 678 pg/mL (193-986)
[2023-03-18 20:02] LABS: FREE T4 0.69 ng/dL (0.76-1.46)
[2023-03-19 22:21] LABS: T3,Free 3.4 pg/mL (2.8-5.3)
[2023-03-19 23:03] LABS: Estradiol 77 pg/mL (See Note)
[2023-03-21 09:17] LABS: Parathyroid Hormone,Intact 22 pg/mL (19-88)
[2023-03-24 16:44] LABS: Testosterone, Free 0.88 ng/dL (<0.13-1.03); Testosterone, Total 24 ng/dL (8-60)
== END 2023-03-18 19:17 | disposition home or self-care (01) ==
LOC: LBN 19:16
PROVIDERS: PCP Student in an Organized Health Care Education/Training Program; Visit Provider Registered Nurse
DX: R53.83 Other fatigue (principal); F41.8 Other specified anxiety disorders; Z79.899 Other long term (current) drug therapy; R79.89 Other specified abnormal findings of blood chemistry
CPT/HCPCS: 80053; 82306; 84402; 84403; 82607; 82670; 82728; 82746; 83036; 83540; 83550; 83735; 83970; 84439; 84443; 84481; 85025

== ENCOUNTER 2023-04-26 00:57 | Outpatient (CLI) | payer OTHER, SELFPAY ==
--- NOTE | 2023-04-26 07:51 | DI.RAD_ITS ---
Exam(s) XR FOOT LT COMPLETE EXAM: XR FOOT LT COMPLETE CLINICAL HISTORY: PAIN IN LT FOOT, M79.672; RECENT STRESS FX OF 3RD METATARSAL. TECHNIQUE: 2D digital imaging was performed. Three views. COMPARISON: CR,XR XR FOOT LT COMPLETE from 03/04/2023 MR MR LOWER EXTREMITY LT WO from 03/07/2023 FINDINGS: BONES: Callus formation is seen around the distal shaft of the 3rd metatarsal consistent with some he aling at the previously noted fracture. No additional fractures seen. No bony destructive lesion is seen. JOINTS: No dislocation present. SOFT TISSUE: Normal. IMPRESSION: Subacute fracture distal 3rd metatarsal. DATA REPOSITORY: RADIATION DOSE DELIVERED:
== END 2023-04-26 01:17 ==
LOC: DI 00:57
PROVIDERS: PCP Physician Assistant; Visit Provider Physician Assistant
DX: S92.332A Displaced fracture of third metatarsal bone, left foot, initial encounter for closed fracture (principal); X58.XXXA Exposure to other specified factors, initial encounter
CPT/HCPCS: 73630

== ENCOUNTER 2023-05-05 10:47 | Outpatient (CLI) | payer OTHER, SELFPAY ==
[2023-05-05 09:08] LABS: HGB 13.9 g/dL (11.2-15.7)
[2023-05-05 09:37] LABS: Iron 140 ug/dL (50-170); Total Iron Binding Capacity 325 ug/dL (250-450); Transferrin Sat 43 % (15-50)
[2023-05-05 09:46] LABS: Anion Gap 9.8 mmol/L (3-11); BUN 11 mg/dL (7-18); CO2 27.2 mmol/L (21.0-32.0); CREATININE 0.7 mg/dL (0.55-1.02); Calcium 8.8 mg/dL (8.5-10.1); Chloride 104 mmol/L (98-107); Estimated GFR 117.77 (mL/min/1.73m2); Glucose 98 mg/dL (74-106); Potassium 3.7 mmol/L (3.5-5.1); Sodium 141 mmol/L (136-145); TSH (W/Ref FT4) 1.39 uIU/mL (0.36-3.74)
[2023-05-05 09:47] LABS: FREE T4 0.75 ng/dL (0.76-1.46); TSH 1.47 uIU/mL (0.36-3.74)
[2023-05-05 19:32] LABS: Estradiol 185 pg/mL (See Note)
[2023-05-05 20:12] LABS: Parathyroid Hormone,Intact 28 pg/mL (19-88)
[2023-05-06 17:49] LABS: Beta-CrossLaps (B-CTx) 149 pg/mL
[2023-05-17 10:05] LABS: Testosterone, Free 0.88 ng/dL (<0.13-1.03); Testosterone, Total 30 ng/dL (8-60)
== END 2023-05-05 10:48 | disposition home or self-care (01) ==
LOC: LBO 10:48
PROVIDERS: Internal Medicine Endocrinology, Diabetes & Metabolism; PCP Physician Assistant; Visit Provider Student in an Organized Health Care Education/Training Program
DX: Z91.89 Other specified personal risk factors, not elsewhere classified; M81.0 Age-related osteoporosis without current pathological fracture; R53.83 Other fatigue
CPT/HCPCS: 36415; 80048; 82306; 82523; 84402; 84403; 82670; 83540; 83550; 83970; 84439; 84443; 85018

== ENCOUNTER 2023-05-31 14:59 | Outpatient (REF) | payer OTHER, SELFPAY ==
[2023-06-01 13:58] LABS: GC Result Negative (Negative)
[2023-06-01 14:52] LABS: Chlamydia Result Positive (Negative)
== END 2023-05-31 15:00 | disposition home or self-care (01) ==
LOC: LBN 14:59
PROVIDERS: PCP Physician Assistant; Visit Provider Obstetrics & Gynecology
DX: Z11.3 Encounter for screening for infections with a predominantly sexual mode of transmission (principal)
CPT/HCPCS: 87491; 87591

== ENCOUNTER 2023-06-01 18:38 | Outpatient (CLI) | payer OTHER, SELFPAY ==
[2023-06-01 17:10] LABS: Iron 43 ug/dL (50-170)
[2023-06-02 09:51] LABS: Lab Add On Test DONE
[2023-06-02 10:09] LABS: Total Iron Binding Capacity 375 ug/dL (250-450)
[2023-06-03 11:55] LABS: Syphilis Serology (RPR) Negative (Negative)
[2023-06-03 12:25] LABS: Hepatitis A Antibody IgM Negative (Negative); Hepatitis B Core Antibody Negative (Negative); Hepatitis B surface Ag Negative (Negative); Hepatitis C Ab w Rflx HCV PCR Negative (Negative)
[2023-06-03 12:52] LABS: HIV-1/2 Ag & Ab Screen Negative (Negative)
== END 2023-06-01 18:39 | disposition home or self-care (01) ==
LOC: LBO 18:38
PROVIDERS: Student in an Organized Health Care Education/Training Program; PCP Physician Assistant; Visit Provider Obstetrics & Gynecology
DX: Z11.3 Encounter for screening for infections with a predominantly sexual mode of transmission (principal); E46 Unspecified protein-calorie malnutrition; M81.0 Age-related osteoporosis without current pathological fracture; R93.7 Abnormal findings on diagnostic imaging of other parts of musculoskeletal system; Z86.2 Personal history of diseases of the blood and blood-forming organs and certain disorders involving the immune mechanism; E61.1 Iron deficiency
CPT/HCPCS: 36415; 86704; 86709; 86803; 87340; 87389; 83540; 83550; 86592

== ENCOUNTER → 2023-06-17 00:41 | Outpatient (CLI) | payer OTHER, SELFPAY ==
--- NOTE | 2023-06-17 13:50 | DI.DEXA_ITS ---
Exam(s) XR DEXA BONE DENSITY W/WO JOSEPHINE EXAM: XR DEXA BONE DENSITY W/WO JOSEPHINE CLINICAL HISTORY: OSTEOPOROSIS M81.0 TECHNIQUE: HoloNight Up Horizon C densitometer analysis of left hip, lumbar spine and left forearm. Lat eral survey image of the thoracic and lumbar spine. COMPARISON: CR XR DEXA BONE DENSITY W/WO JOSEPHINE from 01/27/2021 FINDINGS: Lateral view of the thoracic and lumbar spine shows no evidence of compression fractures. Bone mineral density measurements of the lumbar spine correspond to a total T-score of -1.8, in the osteopenic range. This is not significantly changed from the prior exam Bone mineral density measurements of the left hip correspond to a total T-score of -1.6. The femora l neck T-score is 1.8, in the osteopenic range. this represents a 5.1 percent increase from the pr ior exam.. Theleft forearm bone mineral density measurements correspond to a T-score of the distal 3rd of -1.0, at the lower limit of normal. This is not significantly changed from the prior exam. IMPRESSION: Osteopenia lumbar spine and left hip. Normal bone mineral density of the forearm.
== END ==
PROVIDERS: PCP Physician Assistant; Visit Provider Internal Medicine Endocrinology, Diabetes & Metabolism
DX: Z13.820 Encounter for screening for osteoporosis (principal); M85.89 Other specified disorders of bone density and structure, multiple sites
CPT/HCPCS: 77080

== ENCOUNTER 2023-06-29 09:24 | Outpatient (REF) | payer OTHER, SELFPAY ==
[2023-06-29 18:04] LABS: Bilirubin Negative (Negative); Blood Trace-lysed (Negative); Clarity Clear (Clear); Glucose Negative (Negative); Ketones Negative (Negative); Leukocyte Esterase Negative (Negative); Nitrite Negative (Negative); Urobilinogen 0.2 mg/dL (Up to 0.2); pH 6.5 (5-8)
[2023-06-29 18:18] LABS: Bacteria Rare HPF (Negative); Epithelial Cells Rare HPF (Negative); WBC 0-2 HPF (0-5)
[2023-06-29 18:19] LABS: C & S Indicated? C&S Done As Ordered; Casts Negative LPF (Negative); Crystals Negative HPF (Negative); Mucus Negative (Negative)
[2023-07-01 12:57] LABS: Chlamydia Result Negative (Negative); GC Result Negative (Negative)
== END 2023-06-29 09:25 | disposition home or self-care (01) ==
LOC: LBN 09:24
PROVIDERS: PCP Physician Assistant; Visit Provider Obstetrics & Gynecology
DX: Z11.3 Encounter for screening for infections with a predominantly sexual mode of transmission (principal); R30.0 Dysuria; N94.9 Unspecified condition associated with female genital organs and menstrual cycle
CPT/HCPCS: 87491; 87591; 81003; 81015; 87086; 87480; 87510; 87660

== ENCOUNTER 2023-08-16 17:37 | Outpatient (CLI) | payer OTHER, SELFPAY ==
[2023-08-16 10:24] LABS: HCG Quant, Pregnancy 19 mIU/mL (1-3)
== END 2023-08-16 17:38 | disposition home or self-care (01) ==
LOC: LBO 17:37
PROVIDERS: PCP Physician Assistant; Visit Provider Obstetrics & Gynecology Gynecology
DX: Z32.01 Encounter for pregnancy test, result positive (principal); T83.31XA Breakdown (mechanical) of intrauterine contraceptive device, initial encounter
CPT/HCPCS: 36415; 84702

== ENCOUNTER 2023-08-18 04:46 | Outpatient (CLI) | payer OTHER, SELFPAY ==
[2023-08-18 11:31] LABS: HCG Quant, Pregnancy 15 mIU/mL (1-3)
== END 2023-08-18 04:47 | disposition home or self-care (01) ==
LOC: LBO 04:46
PROVIDERS: PCP Physician Assistant; Visit Provider Obstetrics & Gynecology Gynecology
DX: T83.31XA Breakdown (mechanical) of intrauterine contraceptive device, initial encounter (principal); Z33.1 Pregnant state, incidental
CPT/HCPCS: 36415; 84702

== ENCOUNTER 2023-08-22 03:42 | Outpatient (CLI) | payer OTHER, SELFPAY ==
[2023-08-22 13:43] LABS: HCG Quant, Pregnancy 2 mIU/mL (1-3)
== END 2023-08-22 03:43 | disposition home or self-care (01) ==
PROVIDERS: PCP Physician Assistant; Visit Provider Obstetrics & Gynecology
DX: T83.31XA Breakdown (mechanical) of intrauterine contraceptive device, initial encounter (principal); Z33.1 Pregnant state, incidental
CPT/HCPCS: 36415; 84702

== ENCOUNTER 2023-08-23 18:33 | Outpatient (REF) | payer OTHER, SELFPAY ==
[2023-08-23 20:43] LABS: Anion Gap 10.2 mmol/L (3-11); BUN 15 mg/dL (7-18); CO2 26.8 mmol/L (21.0-32.0); CREATININE 0.6 mg/dL (0.55-1.02); Calcium 9.9 mg/dL (8.5-10.1); Chloride 102 mmol/L (98-107); Estimated GFR 122.23 (mL/min/1.73m2); FREE T4 0.82 ng/dL (0.76-1.46); Glucose 90 mg/dL (74-106); Potassium 3.4 mmol/L (3.5-5.1); Sodium 139 mmol/L (136-145); TSH 1.21 uIU/mL (0.36-3.74)
== END 2023-08-23 18:34 | disposition home or self-care (01) ==
LOC: NCHCN 18:33
PROVIDERS: PCP Physician Assistant; Visit Provider Physician Assistant
DX: M85.88 Other specified disorders of bone density and structure, other site (principal)
CPT/HCPCS: 80048; 84439; 84443

== ENCOUNTER 2023-10-13 10:13 | Outpatient (CLI) | payer OTHER, SELFPAY ==
[2023-10-13 09:28] LABS: Abs Immature Grans 0.03 10^3/uL (0.0-0.06); Absolute Basophil Count 0.07 10^3/uL (0.0-0.2); Absolute Eosinophil Count 0.11 10^3/uL (0.0-0.7); Absolute Lymphocyte Count 1.59 10^3/uL (1.2-3.4); Absolute Monocyte Count 0.61 10^3/uL (0.1-0.8); Absolute Neutrophil Count 3.44 10^3/uL (1.2-6.7); Basophils % 1.2; Eosinophils % 1.9; HCT 40.8 % (36.0-46.0); HGB 13.6 g/dL (11.2-15.7); Immature Grans % 0.5; Lymphocytes % 27.2; MCH 31.2 pg (27.0-33.0); MCHC 33.3 % (32.0-36.0); MCV 94 fL (80-95); MPV 10.4 fL (8.0-11.0); Monocytes % 10.4; Neutrophils % 58.8; Platelet Count 219 10^3/uL (130-400); RBC 4.36 10^6/uL (3.93-5.22); RDW 13.7 % (11.7-14.6); RDW-SD 46.5 fL; WBC 5.85 10^3/uL (4.4-10.8)
[2023-10-13 09:41] LABS: PTT Activated 29.4 sec (23.6-32.8); Prothrombin Time 10.4 sec (9.1-11.1)
[2023-10-13 11:04] LABS: Iron 76 ug/dL (50-170)
== END 2023-10-13 10:14 | disposition home or self-care (01) ==
LOC: LBO 10:13
PROVIDERS: PCP Physician Assistant; Visit Provider Physician Assistant
DX: R58 Hemorrhage, not elsewhere classified (principal)
CPT/HCPCS: 36415; 83540; 85025; 85610; 85730

== ENCOUNTER 2024-03-23 17:38 | Outpatient (REF) | payer OTHER, SELFPAY ==
[2024-03-23 16:08] LABS: Anion Gap 4.9 mmol/L (3-11); BUN 9 mg/dL (7-18); CO2 26.1 mmol/L (21.0-32.0); CREATININE 0.8 mg/dL (0.55-1.02); Calcium 8.7 mg/dL (8.5-10.1); Calculated LDL 89 mg/dL (<100); Chloride 107 mmol/L (98-107); Cholesterol 168 mg/dL (<200); Estimated GFR 99.71 (mL/min/1.73m2); Glucose 86 mg/dL (74-106); HDL Cholesterol 70 mg/dL (40-60); Sodium 138 mmol/L (136-145); Triglyceride 46 mg/dL (<150)
== END 2024-03-23 17:39 | disposition home or self-care (01) ==
LOC: NCHCN 17:38
PROVIDERS: PCP Physician Assistant; Visit Provider Physician Assistant
DX: M81.0 Age-related osteoporosis without current pathological fracture (principal); Z13.220 Encounter for screening for lipoid disorders
CPT/HCPCS: 80048; 80061; 82306

== ENCOUNTER 2024-06-24 13:12 | Emergency (ER) | payer OTHER, SELFPAY ==
[2024-06-24 13:14] VITALS: BP 149/91; PULSE 80; RESP 15; TEMP 36.2; O2SAT 99
--- NOTE | 2024-06-24 13:15 | DI.RAD_ITS ---
Exam(s) XR FOOT LT COMPLETE EXAM: XR FOOT LT COMPLETE CLINICAL HISTORY: Puncture wound. TECHNIQUE: 2D digital imaging was performed. Three views. COMPARISON: CR XR FOOT LT COMPLETE from 04/26/2023 FINDINGS: BONES: No acute fracture is present. No bony destructive lesion is seen. JOINTS: No dislocation present. SOFT TISSUE: Normal. IMPRESSION: Unremarkable radiographs of the left foot. DATA REPOSITORY: RADIATION DOSE DELIVERED:
--- NOTE | 2024-06-24 13:31 | W.ED.GENAD ---
Discharge Plan Disposition Patient Disposition: Home Condition: Stable Discharge Details Clinical Impression: Puncture wound of foot, left Primary Care Provider: Jai Jones ED Provider: Heather Pinto Home Meds and New Rx's Prescriptions: New cephalexin 500 mg capsule 500 mg PO BID 7 Days Qty: 14 0RF Rx Instructions: Take one tablet by mouth twice daily x 7 days Continued escitalopram oxalate [Lexapro] 20 mg tablet 20 mg PO DAILY Rx Instructions: pt aware of interaction w/ zoan that she takes very infrequently cc bupropion HCl [Wellbutrin XL] 300 mg tablet extended release 24 hr 300 mg PO DAILY lorazepam [Ativan] 1 mg tablet 1 mg PO HS PRN (Reason: anticipatory anxiety; panic episodes) Qty: 28 2RF Rx Instructions: Try 1/2 tab calcium citrate-vitamin D3 200 mg-6.25 mcg (250 unit) tablet 2 tab PO BID Rx Instructions: 03/13/21 [facility] Total goal with food is 1200 mg Calcium daily. mk prochlorperazine maleate 5 mg tablet 5 mg PO Q12H PRN (Reason: nausea) Qty: 30 1RF ondansetron 4 mg tablet,disintegrating 4 mg PO Q8H PRN (Reason: Nausea) Qty: 20 1RF Discharge Instructions Instructions: Taking care of cuts, scrapes, and puncture wounds Additional Instructions: You were given a tetanus booster here in the department today. X-ray shows no foreign body or acute bony abnormality on this preliminary result, however on the radiologist over read we will call you if there is anything different. Please keep wound clean and as dry as possible. Take the antibiotics as directed with yogurt or a probiotic daily. Follow up with primary care provider in 3-5 days. Return to ED sooner if any worsening signs of infection, redness red streaks swelling drainage or concerns. Please take Tylenol or Ibuprofen with food every 4-6 hours as needed for pain and swelling. Thank you for allowing us to care for you today. Referrals: Jai Jones [Primary Care Provider] - 5 days HPI General Mode of arrival: ambulatory. Date/Time Provider Initiated Documentation: 06/24/24 13:24. Limitations to Documentation: no limitations. Information obtained by: patient, RN notes reviewed and old records reviewed. HPI Narrative: 34-year-old female presents to the ER with a puncture wound to her bottom of her left foot which occurred approximately 40 minutes prior to arrival. Patient was out side of a dumpster throwing trash when stepped on a board with a nail in it. The nail did go through the sole of her shoe. Last tetanus vaccination was 2014. She does have a puncture wound noted to the bottom of her foot. Bleeding is controlled at this time. Circulation sensation and movement intact. Related Data Home Medications ?Medication ?Instructions ?Recorded ?Confirmed calcium citrate 200 mg 2 tab PO BID 12/01/21 06/24/24 calcium-vitamin D3 6.25 mcg (250 unit) tablet lorazepam 1 mg tablet (Ativan) 1 mg PO HS PRN anticipatory 06/01/22 06/24/24 anxiety; panic episodes #28 tab-caps prochlorperazine maleate 5 mg 5 mg PO Q12H PRN nausea #30 tabs 06/30/22 06/24/24 tablet escitalopram oxalate 20 mg tablet 20 mg PO DAILY 08/13/22 06/24/24 (Lexapro) ondansetron 4 mg disintegrating 4 mg PO Q8H PRN Nausea #20 tabs 12/21/22 06/24/24 tablet bupropion HCl 300 mg 24 hr tablet, 300 mg PO DAILY 05/22/24 06/24/24 extended release (Wellbutrin XL) cephalexin 500 mg capsule 500 mg PO BID Cellulitis 7 days 06/24/24 #14 caps Previous Rx's ?Medication ?Instructions ?Recorded lorazepam 1 mg tablet (Ativan) 1 mg PO HS PRN anticipatory 06/01/22 anxiety; panic episodes #28 tab-caps prochlorperazine maleate 5 mg 5 mg PO Q12H PRN nausea #30 tabs 06/30/22 tablet ondansetron 4 mg disintegrating 4 mg PO Q8H PRN Nausea #20 tabs 12/21/22 tablet cephalexin 500 mg capsule 500 mg PO BID Cellulitis 7 days 06/24/24 #14 caps Allergies Allergy/AdvReac Type Severity Reaction Status Date / Time No Known Allergies Allergy Verified 06/24/24 13:22 General Stated Complaint: ForeignBody TAMIKO: 4 Review of Systems All systems reviewed & are unremarkable except as noted in HPI and below Exam Extrem Left lower extremity: foot Details: puncture wound plantar medial mid Details: single and vascular exam Details: dorsalis pedis pulse present, posterior tibial pulse present and normal capillary refill Ankle/foot/toe images: 1. Single puncture wound noted Course Vital Signs Vital signs: Vital Signs Temperature 36.2 C L 06/24/24 13:14 Pulse 80 06/24/24 13:14 Respiratory Rate 15 06/24/24 13:14 Blood Pressure 149/91 H 06/24/24 13:14 Pulse Oximetry 99 06/24/24 13:14 Temperature 36.2 C L 06/24/24 13:14 Pulse 80 06/24/24 13:14 Respiratory Rate 15 06/24/24 13:14 Respiratory Effort Normal, Non-Labored 06/24/24 13:23 Respiratory Pattern Normal 06/24/24 13:23 Blood Pressure 149/91 H 06/24/24 13:14 Blood Pressure Position Sitting 06/24/24 13:14 Pulse Oximetry 99 06/24/24 13:14 Oxygen Delivery Method Room Air 06/24/24 13:14 Oxygen Flow Rate 0 06/24/24 13:14 Pain Level 3 06/24/24 13:14 Medical Decision Making 34-year-old female presents to the ER with a puncture wound to her bottom of her left foot which occurred approximately 40 minutes prior to arrival. Patient was out side of a dumpster throwing trash when stepped on a board with a nail in it. The nail did go through the sole of her shoe. Last tetanus vaccination was 2014. She does have a puncture wound noted to the bottom of her foot. Bleeding is controlled at this time. Circulation sensation and movement intact. X-ray of foot ordered to rule out foreign body or bony abnormality. Tdap will be updated, cephalexin 500 mg p.o. given. Patient discharged home with instructions and Cephalexin 500 mg PO BID x 7 days to treat empirically for infections. Verbalized understanding. This text was generated using Protonetation system, please disregard any oddities of phrase or misspellings. Quality:SDOH Health Related Social Needs: No Data to Display PFSH All Active Problems (Updated 06/24/24 @ 14:57 by Heather Pinto NP) Puncture wound of foot, left (Acute) PMDD (premenstrual dysphoric disorder) (Acute) Stress fracture, left foot, initial encounter for fracture (Acute) via portal/xr/mri Foot pain, left (Acute) possible Fx per XR (Faint periosteal reaction seen at the distal diaphysis of the 3rd metatarsal....may represent a healing fracture.? Please correlate with patient's site of pain.? An MRI may be considered for further evaluation.) Heart palpitations (Acute) Increasing in frequency, intensity (episode of run when leaning forward last week) .. no CP, but uncomfortable. Rash (Acute) 03/26/22 Dr Arciniega (left thigh) Keratosis pilaris (Acute ~02/2022) 03/26/22 Dr Arciniega Throat irritation (Acute) Acne vulgaris (Chronic ~04/2019) 12/11/[address] Arciniega. Rx Spirolactone. 03/26/22 F/u w Dr Arciniega Hypokalemia (Chronic) Monitoring q3-6 mos due to malnutrition/malabsorption.. Right knee pain (Acute) Osteoporosis (Chronic) 01/27/21 Dexa: Femoral head -2.2, LSpine -2.0 01/2021 [facility] [place]ocr[place]ology. Increased dietary Ca recommended. No other medication changes. Depression (Chronic) SSRI x11yrs Anxiety (Chronic) Medical History IUD 08/13/23 missed menses. + UPT 08/16/23 Presence of IUD Kaila IUD placed 05/31/23 Abnormal x-ray of bone Contraception 04/2022. Kaila removed. Mirena inserted 05/2022. Mirena removed 12/02 mood changes. 07/2022. Will use condoms. 05/2023: Kaila IUD placed History of vitamin D deficiency Insufficiency fracture of tibia 12/2020. L tib/fib Internal derangement of left knee GERD (gastroesophageal reflux disease) PM .. Seen by ENT (Josey) .. Referred otalgia of right ear Cholelithiasis Surgical History Hx of dental confucianist Gum grafting History of tonsillectomy (~1995) Cholecystectomy 2013 H/O surgical procedure a. tonsillectomy b. cholecystectomy Family History Father Heart disease Hypertension Mother Asthma Daughter Asthma Aunt Breast cancer negative BRCA testing. Paternal Grandfather Lung cancer Maternal Grandfather Non-Hodgkin lymphoma Diabetes Social History Smoking/Tobacco Use Status: Never Smoking risk assessment performed?: Yes Alcohol Intake: current Alcohol Intake frequency: a few times a month Drug use: Never Substance use type: does not use Household members: children and other Details: D - Sylvia Number of Children: 1 Education Level: college Do you need help understanding health information?: Rarely current occupation: RN, [employer] Sexually active: Yes Do you think of yourself as: straight/heterosexual Current gender identity: female What type of physical activity do you participate in: none Do you feel safe at home: Yes Do you feel safe in your relationship?: Yes Female Reproductive History Menstrual control method: progestin IUCD History History 1 Para 1 Hx # Term Pregnancies 1 Multiple births Hx # Pregnancies Ectopic pregnancies AB induced Hx Number of Living Children 1 AB spontaneous Past Pregnancies Del. Date GA/Weeks # Preg Succ Route Wgt Sex Labor Lgth Anesthesia Location Prov Complic 12/29/14 No vaginal 3288.545 g Female CNM Delivery Date: 12/29/14 Last Updated by: Negrito Matute Have you Been Recently Intoxicated or Drunk Within the Last 30 days?: No Have you Ever Experienced Previous Episodes of Alcohol Withdrawal?: No Have you ever Experienced Withdrawal Seizures?: No Have you ever Experienced Delirium Tremens(DT)s?: No Have you ever undergone Alcohol Rehabilitation Treatment (i.e, inpt ot outpatient treatment programs)?: No Have you ever Experienced Blackouts?: No Have you ever Combined Alcohol with other Downers within the last 90 days?: No Have you ever Combined Alcohol with any other Substance of Abuse during the last 90 days?: No Positive Blood Alcohol level on Presentation? [PCS.BAL]: No Evidence of Increased Autonomic Activity (i.e. HR>120, tremor, sweating, agitation, nausea)?: No Result: 0
[2024-06-24] MEDS: Cephalexin 500 MG CAP PO (14:14)
[2024-06-24] MEDS: Cephalexin 500 MG CAP, 2 CAPS/BTL PO (15:00)
--- NOTE | 2024-06-24 15:56 | DI.VRAD_ITS ---
PROCEDURE INFORMATION: Exam: XR Left Foot Exam date and time: 06/24/2024 2:22 PM Age: 34 years old Clinical indication: Other: Puncture wound-stepped on kate nail TECHNIQUE: Imaging protocol: Radiologic exam of the left foot. Views: 3 or more views. COMPARISON: CR XR FOOT LT COMPLETE 04/26/2023 7:49 AM FINDINGS: Bones/joints: Normal. Soft tissues: Normal. IMPRESSION: No radiopaque foreign body. No evidence for fracture. Dictated and Authenticated by: Es Gandhi MD. Ordering:DEENA Romero MD
== END 2024-06-24 15:32 | disposition home or self-care (01) ==
PROVIDERS: Emergency Provider Registered Nurse Emergency; PCP Physician Assistant
DX: S91.332A Puncture wound without foreign body, left foot, initial encounter (principal); W45.0XXA Nail entering through skin, initial encounter
CPT/HCPCS: 90471; 90715; 99284; 73630

== ENCOUNTER 2024-08-14 13:08 | Outpatient (CLI) | payer OTHER, SELFPAY ==
[2024-08-14 11:51] LABS: HCG Quant, Pregnancy 40 mIU/mL (1-3)
== END 2024-08-14 13:09 | disposition home or self-care (01) ==
LOC: LBO 13:09
PROVIDERS: PCP Physician Assistant; Visit Provider Obstetrics & Gynecology Gynecology
DX: Z32.01 Encounter for pregnancy test, result positive (principal); O26.899 Other specified pregnancy related conditions, unspecified trimester; Z67.91 Unspecified blood type, Rh negative
CPT/HCPCS: 36415; 84702

== ENCOUNTER 2024-08-16 15:56 | Outpatient (CLI) | payer OTHER, SELFPAY ==
[2024-08-16 16:17] LABS: HCG Quant, Pregnancy 20 mIU/mL (1-3)
== END 2024-08-16 15:57 | disposition home or self-care (01) ==
LOC: LBO 15:56
PROVIDERS: PCP Physician Assistant; Visit Provider Obstetrics & Gynecology Gynecology
DX: Z32.01 Encounter for pregnancy test, result positive (principal); O26.899 Other specified pregnancy related conditions, unspecified trimester; Z67.91 Unspecified blood type, Rh negative
CPT/HCPCS: 36415; 84702

== ENCOUNTER 2024-08-17 15:18 | Outpatient (REF) | payer OTHER, SELFPAY ==
[2024-08-21 11:44] LABS: Chlamydia Result Negative (Negative); GC Result Negative (Negative)
== END 2024-08-17 15:19 | disposition home or self-care (01) ==
LOC: LBN 15:18
PROVIDERS: PCP Physician Assistant; Visit Provider Obstetrics & Gynecology Gynecology
DX: Z11.3 Encounter for screening for infections with a predominantly sexual mode of transmission (principal); O03.4 Incomplete spontaneous abortion without complication
CPT/HCPCS: 87491; 87591

== ENCOUNTER 2024-08-23 12:11 | Outpatient (CLI) | payer OTHER, SELFPAY ==
[2024-08-23 13:18] LABS: HCG Quant, Pregnancy 2 mIU/mL (1-3)
== END 2024-08-23 12:12 | disposition home or self-care (01) ==
LOC: LBO 12:12
PROVIDERS: PCP Physician Assistant; Visit Provider Obstetrics & Gynecology Gynecology
DX: O03.4 Incomplete spontaneous abortion without complication (principal); Z11.3 Encounter for screening for infections with a predominantly sexual mode of transmission
CPT/HCPCS: 36415; 84702

== ENCOUNTER 2024-10-23 03:38 | Outpatient (CLI) | payer OTHER, SELFPAY ==
[2024-10-24 07:34] LABS: Prolactin 4.9 ng/mL (See Note)
== END 2024-10-23 03:39 | disposition home or self-care (01) ==
LOC: LBO 03:38
PROVIDERS: PCP Nurse Practitioner Family; Visit Provider Obstetrics & Gynecology
DX: N93.8 Other specified abnormal uterine and vaginal bleeding (principal)
CPT/HCPCS: 36415; 84146; 84443

== ENCOUNTER 2025-01-14 14:07 | Outpatient (CLI) | payer OTHER, SELFPAY ==
[2025-01-14 14:12] LABS: HCG Quant, Pregnancy 127 mIU/mL (1-3)
== END 2025-01-14 14:08 | disposition home or self-care (01) ==
LOC: LBO 14:08
PROVIDERS: PCP Nurse Practitioner Family; Visit Provider Advanced Practice Midwife
DX: Z34.91 Encounter for supervision of normal pregnancy, unspecified, first trimester (principal); O09.291 Supervision of pregnancy with other poor reproductive or obstetric history, first trimester
CPT/HCPCS: 36415; 84702

== ENCOUNTER 2025-01-16 03:58 | Outpatient (CLI) | payer OTHER, SELFPAY ==
[2025-01-16 11:58] LABS: HCG Quant, Pregnancy 267 mIU/mL (1-3)
[2025-01-17 15:11] LABS: ALT 22 U/L (14-59); AST 20 U/L (15-37); Albumin 4.2 g/dL (3.4-5.0); Alkaline Phosphatase 50 U/L (46-116); Anion Gap 10.7 mmol/L (3-11); BUN 9 mg/dL (7-18); Bilirubin, Total 0.3 mg/dL (0.2-1.0); CO2 24.3 mmol/L (21.0-32.0); CREATININE 0.7 mg/dL (0.55-1.02); Calcium 9.5 mg/dL (8.5-10.1); Chloride 103 mmol/L (98-107); Estimated GFR 117.04 (mL/min/1.73m2); Glucose 86 mg/dL (74-106); Potassium 3.9 mmol/L (3.5-5.1); Sodium 138 mmol/L (136-145)
== END 2025-01-16 03:59 | disposition home or self-care (01) ==
LOC: LBO 03:59
PROVIDERS: Registered Nurse; PCP Nurse Practitioner Family; Visit Provider Advanced Practice Midwife
DX: Z34.91 Encounter for supervision of normal pregnancy, unspecified, first trimester (principal); O09.291 Supervision of pregnancy with other poor reproductive or obstetric history, first trimester
CPT/HCPCS: 36415; 80053; 84702

== ENCOUNTER 2025-01-18 16:35 | Outpatient (CLI) | payer OTHER, SELFPAY ==
[2025-01-18 15:11] LABS: HCG Quant, Pregnancy 508 mIU/mL (1-3)
== END 2025-01-18 16:36 | disposition home or self-care (01) ==
LOC: LBO 16:36
PROVIDERS: PCP Nurse Practitioner Family; Visit Provider Advanced Practice Midwife
DX: O09.291 Supervision of pregnancy with other poor reproductive or obstetric history, first trimester (principal)
CPT/HCPCS: 36415; 84702

== ENCOUNTER 2025-01-24 14:13 | Outpatient (CLI) | payer OTHER, SELFPAY ==
[2025-01-24 15:07] LABS: HCG Quant, Pregnancy 6478 mIU/mL (1-3)
== END 2025-01-24 14:14 | disposition home or self-care (01) ==
LOC: LBO 14:17
PROVIDERS: PCP Nurse Practitioner Family; Visit Provider Advanced Practice Midwife
DX: O09.291 Supervision of pregnancy with other poor reproductive or obstetric history, first trimester (principal)
CPT/HCPCS: 36415; 84702

== ENCOUNTER 2025-03-04 01:31 | Outpatient (CLI) | payer OTHER, SELFPAY ==
--- NOTE | 2025-03-04 08:15 | DI.MRI_ITS ---
Exam(s) MR BRAIN WO EXAM: MR BRAIN WO CLINICAL HISTORY: ?seizures; known L temporal cyst, nonspecific paroxysmal spell TECHNIQUE: Multiplanar multisequence MRI of the brain was performed. COMPARISON: No exams were available for comparison FINDINGS: CEREBRAL PARENCHYMA: There is no evidence of intracranial hemorrhage, mass effect, or shift of midline structures. There are no extra-axial fluid collections. Ventricles are not enlarged or shifted. No evidence of cerebe llar tonsillar ectopia. There is no significant focal signal abnormality in the cerebellar hemispheres nor within the jarvis, m idbrain, and thalami. There is no abnormal signal abnormality in the periventricular white matter. There is no significant focal signal abnormality evident on diffusion imaging to suggest acute ischem ic event. No significant signal abnormality evident in the temporal lobes, as per request. PITUITARY GLAND: No mass nor parasellar abnormality. No obvious abnormality in the cavernous sinuses. FLOW VOIDS: The expected flow void are noted. No evidence of obvious aneurysm nor obvious vascular ma lformation. PARANASAL SINUSES: The visualized paranasal sinuses appear unremarkable. No obvious finding ORBITS: No obvious findings. IMPRESSION: No significant intracranial findings on this noninfused MRI scan of the brain. History on requisition states that there is apparently a known left temporal cyst. I do not see sign ificance is intra nor extra-axial at this location. There is also no evidence of arachnoid cyst in t he middle cranial fossa. DATA REPOSITORY:
== END 2025-03-04 01:51 ==
LOC: DI 01:31
PROVIDERS: PCP Nurse Practitioner Family; Visit Provider Psychiatry & Neurology Neurology
DX: R40.4 Transient alteration of awareness (principal)
CPT/HCPCS: 70551

== ENCOUNTER 2025-03-05 00:56 | Outpatient (CLI) | payer OTHER, SELFPAY ==
--- NOTE | 2025-03-05 12:41 | PDOC.EEG ---
Neurology EEG EEG: [facility] Department of Neurology EEG REPORT Date of Recordin03/05/25 Interpreting Physician: Dr. Padmini Anderson PCP/Referring Provider: Shreyas Valle NP Reason for study: Ailyn Webb is a 35 year-old, currently with 2 years of spells concerning for seizure. Current Medications: Home Medications ?Medication ?Instructions ?Recorded ?Confirmed ?Type calcium 200 mg (as 2 tab PO DAILY 09/25/24 02/12/25 History citrate)-vitamin D3 6.25 mcg (250 unit) tablet escitalopram oxalate 20 mg tablet 20 mg PO DAILY #90 tabs 10/22/24 02/12/25 Rx (Lexapro) lorazepam 0.5 mg tablet 0.5 mg PO DAILY PRN anxiety #30 12/17/24 02/12/25 Rx tabs bupropion HCl 150 mg 24 hr tablet, 150 mg PO QAM 01/14/25 02/12/25 History extended release lavender oil 80 mg capsule mg PO 01/14/25 02/12/25 History (CalmAid) doxylamine 10 mg-pyridoxine (vit 1 tab PO BID 8 weeks #112 tabs 01/31/25 02/12/25 Rx B6) 10 mg tablet,delayed release (Diclegis) ondansetron 4 mg disintegrating 4 mg PO Q8H PRN Nausea #20 tabs 02/04/25 02/12/25 Rx tablet prochlorperazine maleate 5 mg 5 mg PO BID PRN nausea and 02/12/25 02/12/25 Rx tablet vomiting #30 tabs METHODS: A 21 channel digitized electroencephalogram was performed in the [facility] Clinical Neurophysiology Laboratory. The 10/20 international system of electrode placement was used and bipolar and referential electrode montages were recorded. In addition to EEG the patient was monitored for EKG and lateral/vertical eye movements. Activation procedures of photic stimulation and hyperventilation were performed if applicable. Video was used during activation procedures and during events where applicable. The duration of the recording was 30 minutes. DESCRIPTION OF EEG: The patient was noted to be awake only during the recording. During maximal wakefulness a 9-Hz posterior background rhythm was present which was well-modulated, symmetrical, reactive to eye opening, and of moderate voltage. With eye opening the background activity changed to a low voltage mixture of alpha, beta, and occasional theta range frequencies. Faster frequencies were present in the bilateral anterior head regions. There was a normal anterior-posterior voltage gradient. No drowsiness or stage II sleep was recorded. Activating Procedures: Photic stimulation was performed which produced a symmetrical posterior driving response at various flash frequencies. Hyperventilation was performed with moderate effort and produced no physiological slowing of the background. EKG: EKG revealed normal sinus rhythm. INTERPRETATION: This EEG is normal during the awake state as well as during photic stimulation and hyperventilation. PRIOR EEG: none CLINICAL CORRELATION: No focal regions of cerebral dysfunction or epileptiform activity was present. No sleep was recorded during the study which reduces the sensitivity of the exam. If seizure remains a part of the differential, consider a repeat sleep-deprived EEG or overnight ambulatory EEG. Epilepsy remains a clinical diagnosis and a normal EEG does not rule out epilepsy. Clinical correlation is advised. Padmini Anderson MD Date of service: 03/05/25
== END 2025-03-05 00:57 | disposition home or self-care (01) ==
LOC: RT 00:57
PROVIDERS: PCP Nurse Practitioner Family; Visit Provider Psychiatry & Neurology Neurology
DX: R40.4 Transient alteration of awareness (principal); R56.9 Unspecified convulsions
CPT/HCPCS: 95816

== ENCOUNTER 2025-03-12 03:59 | Outpatient (CLI) | payer OTHER, SELFPAY ==
[2025-03-12 16:02] LABS: Panorama Kit Sent via Fed Ex
[2025-03-12 16:25] LABS: Abs Immature Grans 0.08 10^3/uL (0.0-0.06); Absolute Lymphocyte Count 1.96 10^3/uL (1.2-3.4); Absolute Monocyte Count 0.75 10^3/uL (0.1-0.8); Basophils % 0.3 %; Eosinophils % 0.9 %; HCT 34.4 % (36.0-46.0); HGB 11.8 g/dL (11.2-15.7); Immature Grans % 0.7 %; Lymphocytes % 16.7 %; MCH 31.5 pg (27.0-33.0); MCHC 34.3 % (32.0-36.0); MCV 92 fL (80-95); MPV 10.8 fL (8.0-11.0); Monocytes % 6.4 %; Platelet Count 203 10^3/uL (130-400); RBC 3.75 10^6/uL (3.93-5.22); RDW 12.7 % (11.7-14.6); RDW-SD 42.4 fL; WBC 11.73 10^3/uL (4.4-10.8)
[2025-03-12 16:33] LABS: Absolute Basophil Count 0.04 10^3/uL (0.0-0.2); Absolute Eosinophil Count 0.11 10^3/uL (0.0-0.7)
[2025-03-13 15:44] LABS: Lab Add On Test DONE
[2025-03-14 09:14] LABS: Hepatitis C Ab w Rflx HCV PCR Negative (Negative)
[2025-03-14 09:29] LABS: Hepatitis B Surface Ag Negative (Negative)
[2025-03-14 10:09] LABS: HIV-1/2 Ag & Ab Screen Negative (Negative)
[2025-03-14 11:42] LABS: Rubella IgG Ab (UVM) Positive (See Note)
[2025-03-14 11:45] LABS: Varicella IgG Antibody Positive (See Note)
[2025-03-15 18:13] LABS: Syphilis IgG w/Reflex Nonreactive (Nonreactive)
[2025-03-16 10:06] LABS: Toxoplasma Ab, IgG Positive (Negative); Toxoplasma Ab, IgM Negative (Negative); Toxoplasma IgG Value 37 IU/mL
[2025-03-17 01:35] LABS: Specimen WB Whole Blood
[2025-03-27 14:54] LABS: Result Summary NEGATIVE; Specimen WB Whole Blood
== END 2025-03-12 04:00 | disposition home or self-care (01) ==
LOC: LBO 03:59
PROVIDERS: Advanced Practice Midwife; PCP Nurse Practitioner Family; Visit Provider Advanced Practice Midwife
DX: Z34.91 Encounter for supervision of normal pregnancy, unspecified, first trimester (principal)
CPT/HCPCS: 36415; 81220; 81222; 81329; 86787; 86803; 86850; 86900; 86901; 87340; 87389; 85025; 86762; 86777; 86778; 86780

== ENCOUNTER 2025-03-21 12:55 | Outpatient (CLI) | payer OTHER, SELFPAY ==
[2025-03-21 14:21] LABS: Panorama Kit Sent via Fed Ex
== END 2025-03-21 12:56 | disposition home or self-care (01) ==
LOC: LBO 12:55
PROVIDERS: PCP Nurse Practitioner Family; Visit Provider Obstetrics & Gynecology
DX: Z34.92 Encounter for supervision of normal pregnancy, unspecified, second trimester (principal); Z3A.12 12 weeks gestation of pregnancy
CPT/HCPCS: 36415

== ENCOUNTER 2025-03-26 15:19 | Outpatient (REF) | payer OTHER, SELFPAY ==
[2025-03-27 11:28] LABS: Chlamydia Result Negative (Negative); GC Result Negative (Negative)
== END 2025-03-26 15:20 | disposition home or self-care (01) ==
LOC: LBN 15:19
PROVIDERS: PCP Nurse Practitioner Family; Visit Provider Advanced Practice Midwife
DX: Z34.92 Encounter for supervision of normal pregnancy, unspecified, second trimester (principal); Z3A.14 14 weeks gestation of pregnancy
CPT/HCPCS: 87491; 87591; 87086

== ENCOUNTER 2025-06-25 03:11 | Outpatient (CLI) | payer OTHER, SELFPAY ==
[2025-06-25 12:00] LABS: Abs Immature Grans 0.14 10^3/uL (0.0-0.06); HCT 34.6 % (36.0-46.0); HGB 11.6 g/dL (11.2-15.7); Immature Grans % 1.3 %; MCH 31.4 pg (27.0-33.0); MCHC 33.5 % (32.0-36.0); MCV 94 fL (80-95); MPV 11.2 fL (8.0-11.0); Platelet Count 221 10^3/uL (130-400); RBC 3.70 10^6/uL (3.93-5.22); RDW 13.2 % (11.7-14.6); RDW-SD 45.2 fL; WBC 10.80 10^3/uL (4.4-10.8)
[2025-06-25 12:29] LABS: Glucose,1 Hr (Glucola) 183 mg/dL (80-140)
== END 2025-06-25 03:12 | disposition home or self-care (01) ==
LOC: LBO 03:11
PROVIDERS: PCP Nurse Practitioner Family; Visit Provider Obstetrics & Gynecology
DX: Z34.93 Encounter for supervision of normal pregnancy, unspecified, third trimester
CPT/HCPCS: 36415; 82950; 85025

== ENCOUNTER 2025-07-02 15:58 | Outpatient (CLI) | payer OTHER, SELFPAY ==
[2025-07-02 10:21] LABS: Glucose 1 Hour 192 mg/dL
== END 2025-07-02 15:59 | disposition home or self-care (01) ==
LOC: LBO 15:58
PROVIDERS: PCP Nurse Practitioner Family; Visit Provider Obstetrics & Gynecology
DX: O26.899 Other specified pregnancy related conditions, unspecified trimester (principal); Z67.91 Unspecified blood type, Rh negative; Z34.90 Encounter for supervision of normal pregnancy, unspecified, unspecified trimester; R73.09 Other abnormal glucose
CPT/HCPCS: 36415; 86850; 86900; 86901; 90384; 82951

== ENCOUNTER 2025-07-31 03:19 | Outpatient (CLI) | payer OTHER, SELFPAY ==
--- NOTE | 2025-07-31 07:45 | DI.US_ITS ---
Exam(s) US OB EMELY WEIGHT EXAM: US OB EMELY WEIGHT CLINICAL HISTORY: growth,MARGINAL INSERTION UMBILICAL CORD,o43.199. TECHNIQUE: Transabdominal obstetrical ultrasound performed. COMPARISON: US US OB 2-3 TRIMESTER from 05/06/2025 FINDINGS:: Number of fetuses: 1 position: CEPHALIC Placental location: ANTERIOR No evidence of previa. Placental cord insertion now measures 4.7 cm from the edge of the placenta. BIOMETRIC DATA: BPD: 8.52cm, 34weeks 2days HC: 29.91cm, 33weeks 1day AC: 27.83cm, 31weeks 6days FL: 6.05cm, 31weeks 3days EFW: 1,898.63g, 4lb 4.26oz, 37% Composite Age: 32weeks 5days ROMY: 09/20/2025 Heart Rate: 159bpm Amniotic fluid index: 16.1cm. Visually, amount of fluid is within normal limits. IMPRESSION: size and weight are within the expected range. EMELY in normal range. Placental cord insertion now measures 4 cm from the margin of the placenta. DATA REPOSITORY:
== END 2025-07-31 03:39 ==
LOC: DI 03:19
PROVIDERS: PCP Nurse Practitioner Family; Visit Provider Obstetrics & Gynecology
DX: O43.193 Other malformation of placenta, third trimester; Z3A.34 34 weeks gestation of pregnancy
CPT/HCPCS: 76816

== ENCOUNTER 2025-08-09 07:37 | Outpatient (CLI) | payer OTHER, SELFPAY ==
[2025-08-09 11:16] VITALS: BP 110/69; PULSE 83; RESP 18; TEMP 36.8
[2025-08-09 11:45] VITALS: BP 110/69; PULSE 83; TEMP 36.8
[2025-08-09 12:00] VITALS: BP 110/69; PULSE 83; TEMP 36.8
--- NOTE | 2025-08-09 12:06 | W.OBNST ---
Date of service: 08/09/25 Time of Service: 12:06 NST Evaluation Reason for NST Reasons for Nonstress Test: GDM-INSULIN Gestational Age Gestational Age in Weeks and Days: 33 Weeks and 3Days Test and Monitor Explained Test/Monitor Explained: Test Explained, Monitor Explained and Patient Verbalized Understanding Vital Signs Blood Pressure: 110/69 Pulse: 83 Temperature: 98.2 F Weight: 179 lb NST Information Date on Monitor: 08/09/25 Time on Monitor: 11:00 Date off Monitor: 08/09/25 Time off Monitor: 11:42 Total Time on Monitor: 42 NST Interventions: None Contraction Frequency: rare NST Evaluation Patient States Movement: Present Note Ultrasound Done: N/A. NST Note Note: Category, reactive NST. Mild elevation in her glucose. Will increase from 10 to 14 units of NPH. Will be seen for NST and visit as scheduled on 08/13/25 NST Reviewed and Verified by: Mckenzie Webb
[2025-08-09 12:07] VITALS: BP 110/69; PULSE 83; TEMP 36.8
== END 2025-08-09 12:00 ==
LOC: BCD 07:39 → OBS 11:10
PROVIDERS: PCP Nurse Practitioner Family; Visit Provider Obstetrics & Gynecology
DX: Z3A.33 33 weeks gestation of pregnancy (principal); O24.414 Gestational diabetes mellitus in pregnancy, insulin controlled
CPT/HCPCS: 59025

== ENCOUNTER 2025-08-13 09:53 | Outpatient (CLI) | payer OTHER, SELFPAY ==
[2025-08-13 13:38] VITALS: BP 117/70; PULSE 93; TEMP 36.8
[2025-08-13 13:39] VITALS: BP 117/70; PULSE 93
--- NOTE | 2025-08-13 16:28 | W.OBNST ---
Date of service: 08/13/25 Time of Service: 13:30 NST Evaluation Reason for NST Reasons for Nonstress Test: GDM-INSULIN Gestational Age Gestational Age in Weeks and Days: 34 Weeks and 0Days Test and Monitor Explained Test/Monitor Explained: Test Explained, Monitor Explained and Patient Verbalized Understanding Vital Signs Blood Pressure: 117/70 Pulse: 93 Temperature: 98.2 F NST Information Date on Monitor: 08/13/25 Time on Monitor: 13:08 Date off Monitor: 08/13/25 Time off Monitor: 13:41 Total Time on Monitor: 33 NST Interventions: PO Hydration Contraction Frequency: None NST Evaluation Patient States Movement: Present FHR Baseline: 140 Variability: Moderate 6-25 bpm Accelerations: 15x15 Decelerations: None NST Results: Reactive Note Ultrasound Done: N/A. NST Note NST Reviewed and Verified by: Gisel Fernandes
[2025-08-13 16:29] VITALS: BP 117/70; PULSE 93; TEMP 36.8
== END 2025-08-13 14:54 ==
LOC: BCD 09:54 → OBS 13:11
PROVIDERS: PCP Nurse Practitioner Family; Visit Provider Obstetrics & Gynecology
DX: O24.414 Gestational diabetes mellitus in pregnancy, insulin controlled (principal); Z3A.34 34 weeks gestation of pregnancy
CPT/HCPCS: 59025

== ENCOUNTER 2025-08-16 07:34 | Outpatient (CLI) | payer OTHER, SELFPAY ==
[2025-08-16 11:17] VITALS: BP 117/75; PULSE 86
[2025-08-16 12:01] VITALS: BP 117/75; PULSE 86
--- NOTE | 2025-08-16 12:01 | W.OBNST ---
Date of service: 08/16/25 Time of Service: 12:01 NST Evaluation Reason for NST Reasons for Nonstress Test: GDM-INSULIN Gestational Age Gestational Age in Weeks and Days: 34 Weeks and 3Days Test and Monitor Explained Test/Monitor Explained: Test Explained Vital Signs Blood Pressure: 117/75 Pulse: 86 NST Evaluation Patient States Movement: Present FHR Baseline: 130 Variability: Moderate 6-25 bpm Accelerations: 15x15 Decelerations: None NST Results: Reactive Note Ultrasound Done: N/A. NST Note Note: Category 1, reactive NST. Ongoing management of the remainder of her discussed. Continue twice weekly NSTs with weekly doctor visits. NST Reviewed and Verified by: Mckenzie Webb
== END 2025-08-16 12:00 | disposition home health service (06) ==
LOC: BCD 07:35 → OBS 11:11
PROVIDERS: PCP Nurse Practitioner Family; Visit Provider Obstetrics & Gynecology
DX: O24.414 Gestational diabetes mellitus in pregnancy, insulin controlled (principal); Z3A.34 34 weeks gestation of pregnancy
CPT/HCPCS: 59025

== ENCOUNTER 2025-08-20 07:12 | Outpatient (CLI) | payer OTHER, SELFPAY ==
[2025-08-20 10:09] VITALS: BP 116/73; PULSE 83; TEMP 36.6
[2025-08-20 10:13] VITALS: BP 116/73; PULSE 83
--- NOTE | 2025-08-20 11:14 | W.OBNST ---
Date of service: 08/20/25 Time of Service: 17:00 NST Evaluation Reason for NST Reasons for Nonstress Test: GDM-INSULIN Gestational Age Gestational Age in Weeks and Days: 36 Weeks and 0Days Test and Monitor Explained Test/Monitor Explained: Test Explained, Monitor Explained and Patient Verbalized Understanding Vital Signs Blood Pressure: 116/73 Pulse: 83 Temperature: 97.9 F NST Information Date on Monitor: 08/20/25 Time on Monitor: 10:11 Date off Monitor: 08/20/25 Time off Monitor: 10:49 Total Time on Monitor: 38 NST Interventions: PO Hydration Contraction Frequency: 8-10 minutes NST Evaluation Patient States Movement: Present FHR Baseline: 125 Variability: Moderate 6-25 bpm Accelerations: 15x15 Decelerations: None NST Results: Reactive Note Ultrasound Done: N/A. NST Note NST Reviewed and Verified by: Sabrina Garcia
[2025-08-28 11:15] VITALS: BP 116/73; PULSE 83; TEMP 36.6
== END 2025-08-20 10:54 ==
LOC: BCD 07:12 → OBS 10:03
PROVIDERS: PCP Nurse Practitioner Family; Visit Provider Obstetrics & Gynecology
DX: O24.419 Gestational diabetes mellitus in pregnancy, unspecified control (principal)
CPT/HCPCS: 59025

== ENCOUNTER 2025-08-23 07:20 | Outpatient (CLI) | payer OTHER, SELFPAY ==
[2025-08-23 11:12] VITALS: BP 107/63; PULSE 74; TEMP 36.6
[2025-10-09 12:47] VITALS: BP 107/63; PULSE 74; TEMP 36.6
--- NOTE | 2025-10-09 12:47 | W.OBNST ---
Date of service: 08/23/25 Time of Service: 11:30 NST Evaluation Reason for NST Reasons for Nonstress Test: GDM-INSULIN Gestational Age Gestational Age in Weeks and Days: 38 Weeks and 5Days Test and Monitor Explained Test/Monitor Explained: Test Explained, Monitor Explained and Patient Verbalized Understanding Vital Signs Blood Pressure: 107/63 Pulse: 74 Temperature: 97.9 F NST Information Date on Monitor: 08/23/25 Time on Monitor: 11:02 Date off Monitor: 08/23/25 Time off Monitor: 12:00 Total Time on Monitor: 58 NST Interventions: None Contraction Frequency: irreg NST Evaluation Patient States Movement: Present FHR Baseline: 140 Variability: Moderate 6-25 bpm Accelerations: 15x15 Decelerations: None NST Results: Reactive Note Ultrasound Done: N/A. NST Note NST Reviewed and Verified by: Gisel Fernandes
== END 2025-08-23 12:00 ==
LOC: BCD 07:20 → OBS 11:11
PROVIDERS: PCP Nurse Practitioner Family; Visit Provider Obstetrics & Gynecology
DX: O24.414 Gestational diabetes mellitus in pregnancy, insulin controlled (principal); Z3A.35 35 weeks gestation of pregnancy
CPT/HCPCS: 59025; 87081

== ENCOUNTER 2025-08-27 07:29 | Outpatient (CLI) | payer OTHER, SELFPAY ==
[2025-08-27 13:06] VITALS: BP 111/67; PULSE 80
[2025-08-27 13:10] VITALS: BP 111/67; PULSE 80; TEMP 36.7
--- NOTE | 2025-08-27 13:37 | W.OBNST ---
Date of service: 08/27/25 Time of Service: 13:37 NST Evaluation Reason for NST Reasons for Nonstress Test: GDM-INSULIN and OTHER, SEE COMMENT Gestational Age Gestational Age in Weeks and Days: 36 Weeks and 0Days Test and Monitor Explained Test/Monitor Explained: Test Explained, Monitor Explained and Patient Verbalized Understanding Vital Signs Blood Pressure: 111/67 Pulse: 80 Temperature: 98.1 F Urine Results Urine Protein: Negative Urine Ketones: Positive Urine Glucose: Negative Urine Blood: Negative NST Information Date on Monitor: 08/27/25 Time on Monitor: 13:05 Date off Monitor: 08/27/25 Time off Monitor: 13:27 Total Time on Monitor: 22 NST Interventions: PO Hydration Contraction Frequency: every 8 minutes, irregular NST Evaluation Patient States Movement: Present FHR Baseline: 130 Variability: Moderate 6-25 bpm Accelerations: 15x15 Decelerations: None NST Results: Reactive Note Ultrasound Done: N/A. NST Note Note: Category 1, reactive NST. Appropriate glycemic control. Group B strep culture previously negative. Follow-up for twice-weekly surveillance. Delivery at 39 weeks. NST Reviewed and Verified by: Mckenzie Webb
[2025-08-27 13:38] VITALS: BP 111/67; PULSE 80; TEMP 36.7
== END 2025-08-27 13:33 ==
LOC: BCD 07:29 → OBS 12:40
PROVIDERS: PCP Nurse Practitioner Family; Visit Provider Obstetrics & Gynecology
DX: O24.414 Gestational diabetes mellitus in pregnancy, insulin controlled (principal); Z3A.36 36 weeks gestation of pregnancy
CPT/HCPCS: 59025

== ENCOUNTER → 2025-08-30 03:33 | Outpatient (CLI) | payer OTHER, SELFPAY ==
--- NOTE | 2025-08-30 06:15 | DI.US_ITS ---
Exam(s) US OB EMELY WEIGHT EXAM: US OB EMELY WEIGHT CLINICAL HISTORY: growth, fluid,gest diabetes,O24.419,Z34.90. TECHNIQUE: Transabdominal obstetrical ultrasound was performed. COMPARISON: US US OB EMELY WEIGHT from 07/31/2025 FINDINGS: There is a single viable intrauterine gestation with cardiac activity identified-127 bpm The fetus is presently in cephalic position with spine pointing anteriorly.. Amniotic fluid: There is a low normal amount of amniotic fluid with an EMELY of 10.1cm. Placental location: The placenta is anterior grade 2,with no evidence of placenta previa. Dating parameters place this at approximately 37 weeks and 4 days gestational age, implying ROMY of 09/16/2025. BPD measures 37 weeks and 4 days HC measures 38 weeks and 1 day AC measures 38 weeks and 5 days FL measures 36 weeks and 0 days Estimated weight is 3340 gm-7 pounds 6 ounces Fetus is at the 88th percentile on the Hadlock scale. IMPRESSION:: Viable 3rd trimester gestation, as described above. DATA REPOSITORY:
== END ==
LOC: DI 03:33
PROVIDERS: PCP Nurse Practitioner Family; Visit Provider Obstetrics & Gynecology
DX: O24.414 Gestational diabetes mellitus in pregnancy, insulin controlled; Z3A.38 38 weeks gestation of pregnancy
CPT/HCPCS: 76816

== ENCOUNTER 2025-08-30 08:01 | Outpatient (CLI) | payer OTHER, SELFPAY ==
[2025-08-30 11:27] VITALS: BP 121/75; PULSE 76; TEMP 36.7
[2025-08-30 11:28] VITALS: BP 121/75; PULSE 76
--- NOTE | 2025-08-30 13:02 | W.OBNST ---
Date of service: 08/30/25 Time of Service: 13:02 NST Evaluation Reason for NST Reasons for Nonstress Test: GDM-INSULIN Gestational Age Gestational Age in Weeks and Days: 36 Weeks and 3Days Test and Monitor Explained Test/Monitor Explained: Test Explained Vital Signs Blood Pressure: 121/75 Pulse: 76 Temperature: 98.1 F NST Information Date on Monitor: 08/30/25 Time on Monitor: 11:00 Date off Monitor: 08/30/25 Time off Monitor: 11:40 Total Time on Monitor: 40 NST Interventions: None NST Evaluation Patient States Movement: Present FHR Baseline: 125 Variability: Moderate 6-25 bpm Accelerations: 15x15 Decelerations: None NST Results: Reactive Note Ultrasound Done: N/A. NST Note Note: Category 1, reactive NST. Labor induction scheduled 09/16/2025. Continue surveillance. Continue current regime of Accu-Cheks and insulin NST Reviewed and Verified by: Mckenzie Webb
[2025-08-30 13:03] VITALS: BP 121/75; PULSE 76; TEMP 36.7
== END 2025-08-30 13:01 | disposition home health service (06) ==
LOC: BCD 08:01 → OBS 11:23
PROVIDERS: PCP Nurse Practitioner Family; Visit Provider Obstetrics & Gynecology
DX: O24.414 Gestational diabetes mellitus in pregnancy, insulin controlled (principal); Z3A.38 38 weeks gestation of pregnancy
CPT/HCPCS: 59025

== ENCOUNTER 2025-09-03 07:39 | Outpatient (CLI) | payer OTHER, SELFPAY ==
[2025-09-03 13:04] VITALS: BP 122/73; PULSE 82; RESP 16; TEMP 36.6
[2025-09-03 13:24] VITALS: BP 122/73; PULSE 82; TEMP 36.6
--- NOTE | 2025-09-03 17:00 | W.OBNST ---
Date of service: 09/03/25 Time of Service: 17:00 NST Evaluation Reason for NST Reasons for Nonstress Test: GDM-INSULIN Gestational Age Gestational Age in Weeks and Days: 38 Weeks and 0Days Test and Monitor Explained Test/Monitor Explained: Test Explained and Monitor Explained Vital Signs Blood Pressure: 122/73 Pulse: 82 Temperature: 97.9 F Urine Results Urine Protein: Negative Urine Ketones: Negative Urine Glucose: Negative Urine Blood: Negative NST Information Date on Monitor: 09/03/25 Time on Monitor: 12:55 Date off Monitor: 09/03/25 Time off Monitor: 13:21 Total Time on Monitor: 26 NST Interventions: None NST Evaluation Patient States Movement: Present FHR Baseline: 130 Variability: Moderate 6-25 bpm Accelerations: 15x15 Decelerations: None NST Results: Reactive Note Ultrasound Done: N/A. NST Note NST Reviewed and Verified by: Sabrina Garcia
[2025-09-12 21:24] VITALS: BP 122/73; PULSE 82; TEMP 36.6
== END 2025-09-03 13:25 ==
LOC: BCD 07:42 → OBS 12:56
PROVIDERS: PCP Nurse Practitioner Family; Visit Provider Obstetrics & Gynecology
DX: O24.414 Gestational diabetes mellitus in pregnancy, insulin controlled (principal); Z3A.37 37 weeks gestation of pregnancy
CPT/HCPCS: 59025

== ENCOUNTER 2025-09-06 07:30 | Outpatient (CLI) | payer OTHER, SELFPAY ==
--- NOTE | 2025-09-06 | DI.US_ITS ---
Exam(s) US OB BIOPHYSICAL PROFILE EXAM: US OB BIOPHYSICAL PROFILE CLINICAL HISTORY: suspicious testing. TECHNIQUE: Transabdominal obstetrical ultrasound was performed. COMPARISON: US US OB EMELY WEIGHT from 08/30/2025 FINDINGS: FINDINGS: There is a single viable intrauterine gestation with cardiac activity identified at 128 BPM. The fetus is presently in cephalic position with a spine pointing anteriorly. There is a normal amount of amniotic fluid with EMELY 16.0 cm. Placenta is anterior grade 2 with no evidence of placenta previa. BREATHING MOVEMENTS: 0 GROSS MOVEMENTS: 2 TONE: 2 AMNIOTIC FLUID VOLUME: 2 IMPRESSION: Biophysical profile is 6/8, with 2 points deducted for absence of respiratory movements. Normal amount of amniotic fluid. DATA REPOSITORY:
[2025-09-06 11:21] VITALS: BP 120/73; PULSE 82; TEMP 36.6
[2025-09-06 11:25] VITALS: BP 120/73; PULSE 82; TEMP 36.6
[2025-09-06] MEDS: Normal Saline Flush 10 ML SYR IVP (12:35)
[2025-09-06] MEDS: Lactated Ringers 500 ML IV (12:43)
--- NOTE | 2025-09-06 17:41 | W.PM.OBHPL1 ---
Date of service: 09/06/25 Time of Service: 17:00 OB-HPI Labor/Delivery History of Present Illness Reason for Visit: NST ROMY Calculator Estimated Delivery Date Method Current WG Current Estimate 09/24/25 LMP (Certain) 37w 5d Other Estimates 09/22/25 Ultrasound #1 38w 0d Comments: Suspicious testing History of Present Expected Delivery Route/Plan - (GDM) FOB - Ralph Gomez (his first child) BG Specific Issues/Plan 1. History of SAB x 2- Quant HCGs drawn- WNL 2. Rh negative, 28 wk RhoGam given 07/02 3. CF/SMA carrier screen negative; cfDNA low risk 4. Toxo IgG is positive, IgM is negative 5. Depression/anxiety, Panic attacks, usually at night, uses Ativan 1mg prn - Lexapro, increased to 30mg (EKG normal) - Seeing personal therapist and Ariana Arce weekly right now - Declines use of Wellbutrin, Buspar, and Atarax citing side effects - Talked with psychiatry 05/28 and felt good about their established plan - Ativan 1mg, plans to wean in a few weeks, hydroxyzine prn - 06/18/25: started Seroquel, has ativan prn and hopes to wean - 06/25/25: switched to mirtazepine due to restless legs with seroquel - 07/09/25: D/c'd Mirtazepine for daytime irritability; will continue 1 mg Ativan per psych. Verbalizes counseling on risks. - 07/16/25: Weaning lexapro to switch to venlafaxine, continuing ativan prn 6. Migraines, has compazine as rescue 7. Cardiac palpitations; intermittent. Consider [facility] cardiac referral if persistent 8. Marginal cord insertion 1.5 cm from placental edge at 20 wks, plan interval growth scan @32wks- marginal insertion resolved at 32 weeks- efw 37%ILE AND EMELY - 16 9. GDM @ 29 wks - Will start checking glucose levels - Meds: NPH 16U qhs - screening starting at 32 weeks - Serial growth US - - - - - - - - - - - - - - - - *Consider increasing evening NPH and/or adding morning NPH *GBS at next visit Review of Systems All systems reviewed & are unremarkable except as noted in HPI and below PFSH All Active Problems GDM, class A2 (Acute) Elevated glucose tolerance test (Acute) Rh negative state in antepartum period (Acute) Migraine headache without aura (Acute) (Acute) Major depressive disorder (Chronic ~09/06/24) on SSRI x 11 years HARLEY (generalized anxiety disorder) (Acute) Heart palpitations (Acute) Increasing in frequency, intensity (episode of run when leaning forward last week) .. no CP, but uncomfortable. Hypokalemia (Chronic) Monitoring q3-6 mos due to malnutrition/malabsorption.. Osteoporosis (Chronic) 01/27/21 Dexa: Femoral head -2.2, LSpine -2.0 01/2021 [facility] Endocrinology. Increased dietary Ca recommended. No other medication changes. Medical History Right knee pain Keratosis pilaris (~02/2022) 03/26/22 Dr Arciniega Acne vulgaris (~04/2019) 12/11/[address] Arciniega. Rx Spirolactone. 03/26/22 F/u w Dr Arciniega History of miscarriage, currently Alteration consciousness Nonspecific paroxysmal spell PMDD (premenstrual dysphoric disorder) Stress fracture, left foot, initial encounter for fracture via portal/xr/mri IUD 08/13/23 missed menses. + UPT 08/16/23 History of vitamin D deficiency Insufficiency fracture of tibia 12/2020. L tib/fib Internal derangement of left knee GERD (gastroesophageal reflux disease) PM .. Seen by ENT (Josey) .. Cholelithiasis Surgical History Hx of dental restorationism Gum grafting History of tonsillectomy (~1995) Cholecystectomy 2013 Family History Father Heart disease Hypertension Cancer bladder Depression Hyperlipidemia Kidney stones History of cholecystectomy Mother Asthma Daughter Asthma Aunt Breast cancer negative BRCA testing. Paternal Grandfather Lung cancer Heart disease Maternal Grandfather Non-Hodgkin lymphoma Diabetes Stroke Brother Depression Anxiety Social History (Reviewed 08/20/25 @ 10:50 by TINO Disla Smoking/Tobacco Use Status: Never Smoking risk assessment performed?: Yes Alcohol Intake: current Alcohol Intake frequency: a few times a week Drug use: Never Substance use type: does not use Adopted: No Caregiver/Support person: No Household members: significant other, children and other Details: Sam [place] Ward. 07/2024. BF - Ralph,together 1 yr. Housing: house Number of Children: 1 Communication Needs: None Education Level: college Details: Associates Do you need help understanding health information?: Never current occupation: RN, [employer] Sexually active: Yes Do you think of yourself as: straight/heterosexual Current gender identity: female What is your relationship status?: How often do you talk on the phone with friends or family?: twice per week How often do you get together with friends or relatives?: once per week How often do you attend moravian or religion services?: decline to answer Do you belong to any clubs or organized social groups?: decline to answer Panel score (0-1 are the most socially isolated patients): 1 NHANES result reviewed/action taken: Yes What type of physical activity do you participate in: none Duration: < 15 minutes/day Frequency: does not exercise Carlee/Catholic: Confucianism Special carlee needs: No Seatbelt use: always Helmet use: Yes Helmet use: always Drive intox or ride w/intox bus driver/monitor: No Firearms in home: Yes Firearms unloaded and locked: Yes Do you feel safe at home: Yes Do you feel safe in your relationship?: Yes Victim of physical abuse: No Victim of emotional abuse: No Victim of sexual abuse: No Would you like helpful sources: No Female Reproductive History Menstrual control method: none History History 4 Para 1 Hx # Term Pregnancies 1 Multiple births 0 Hx # Pregnancies 0 Ectopic pregnancies 0 AB induced 0 Hx Number of Living Children 1 AB spontaneous 2 Past Pregnancies Del. Date GA/Weeks # Preg Succ Route Wgt Sex Labor Lgth Anesthesia Location Prov Complic 12/29/14 No vaginal 7 lb 4 oz Female Anea CNM 08/18/23 No 08/16/24 No Delivery Date: 12/29/14 Last Updated by: Gisel Fernandes MD Sylvia Delivery Date: 08/18/23 Last Updated by: Gisel Fernandes MD chemical [facility]. hCG never > 19mIU/ml Delivery Date: 08/16/24 Last Updated by: Janki Mai CNM SAB, no D and C Meds Allergies and Home Medications Allergies Allergy/AdvReac Type Severity Reaction Status Date / Time No Known Allergies Allergy Verified 08/09/25 11:21 Home Medications Medication Instructions Recorded Confirmed Type calcium 200 mg (as 2 tab PO DAILY 09/25/24 09/03/25 History citrate)-vitamin D3 6.25 mcg (250 unit) tablet prochlorperazine maleate 5 mg 5 mg PO BID PRN nausea and 02/12/25 09/03/25 Rx tablet vomiting #30 tabs vits no.126-ferrous fum 1 tab PO DAILY 03/26/25 09/03/25 History 28 mg iron-folic acid 800 mcg tablet (Classic ) lorazepam 0.5 mg tablet 0.5 mg PO DAILY PRN anxiety #30 03/27/25 09/03/25 Rx tabs hydroxyzine HCl 25 mg tablet 25 mg PO QHS #10 tabs 05/19/25 09/03/25 Rx lorazepam 1 mg tablet 1 mg PO TID PRN anxiety #14 tabs 06/04/25 09/03/25 Rx ondansetron 4 mg disintegrating 4 mg PO Q8H PRN Nausea #20 tabs 06/04/25 09/03/25 Rx tablet blood-glucose meter (Contour Next #1 ea 07/02/25 09/03/25 Rx EZ Meter kit) venlafaxine 150 mg 150 mg PO DAILY 07/30/25 09/03/25 History capsule,extended release 24 hr pen needle, diabetic 32 gauge x #100 ea 08/06/25 09/03/25 Rx 5/32 (Advocate Pen Needle) insulin NPH isoph U-100 human 100 14 unit subcut QPM 08/16/25 09/03/25 History unit/mL (3 mL) subcutaneous pen (Humulin N NPH U-100 Insulin KwikPen) Exam Physical Exam Vital signs: Temp Pulse BP 97.9 F 82 120/73 09/06/25 11:21 09/06/25 11:21 09/06/25 11:21 Detailed Labor and Delivery Exam Ayoub Score: Cervical Points Exam 0 1 2 3 Dilation Closed 1-2cm 3-4 cm 5-6cm Effacement 0-30% 40-50% 60-70% 80% Consistency Firm Medium Soft Station -3 -2 -1,0 +1,+2 Position Posterior Mid Anterior Risk Assessment Risk for Shoulder Dystocia Historical/Initial OB: NEGATIVE FOR: Pelvic Abnormality, Pre- BMI>30, Previous Shoulder Dystocia or Previous Macrosomia Risk for Pre-Eclampsia Date Initiated/Initials: not indicated. JK Yes, if one or more: NEGATIVE FOR: Hx Pre-E/Gest HTN, Chronic HTN, Multiple Gestation, Pre-gestational DM, Renal Disease, Systemic Lupus or APA Syndrome Yes, if 2 or more: POSITIVE FOR: >10yr btwn pregnancies; NEGATIVE FOR: Nulliparity, Age>= 35 yrs, BMI>30, ethinicty, Mother/Sister w/ Pre-E or Previous IUGR Risk for Post- Hemorrhage Initial: NEGATIVE FOR: Multiple Gestation, Previous PPH, Known Clotting Deficiency, Grand Multiparity or Anticoagulation
--- NOTE | 2025-09-08 21:49 | W.OBNST ---
Date of service: 09/06/25 Time of Service: 17:00 NST Evaluation Reason for NST Reasons for Nonstress Test: GDM-INSULIN Gestational Age Gestational Age in Weeks and Days: 37 Weeks and 4Days Test and Monitor Explained Test/Monitor Explained: Patient Verbalized Understanding Vital Signs Blood Pressure: 120/73 Pulse: 82 Temperature: 97.9 F NST Information Date on Monitor: 09/06/25 Time on Monitor: 11:20 Date off Monitor: 09/06/25 Time off Monitor: 15:00 Total Time on Monitor: 220 NST Interventions: PO Hydration NST Evaluation Patient States Movement: Present FHR Baseline: 135 Variability: Moderate 6-25 bpm Accelerations: 15x15 Note Ultrasound Done: N/A. NST Note Note: Patient presents for routine NST. Initial NST was concerning for tachycardia; this was resolved with prolonged monitoring, but then the baby began to exhibit intermittent suspicious decelerations. BPP was performed and was noted to be 2 off for breathing. A second NST was performed and reassuring; of note, hiccups were appreciated during this tracing. The patient denies any immediate concerns. She overall appears clinically well. I am reassured by her testing overall; in an abundance of caution she will return tomorrow for NST and BPP. NST Reviewed and Verified by: Sabrina Garcia
[2025-09-08 21:50] VITALS: BP 120/73; PULSE 82; TEMP 36.6
== END 2025-09-06 16:45 ==
LOC: BCD 07:45 → OBS 11:18
PROVIDERS: PCP Nurse Practitioner Family; Visit Provider Obstetrics & Gynecology
DX: O24.414 Gestational diabetes mellitus in pregnancy, insulin controlled (principal); Z3A.37 37 weeks gestation of pregnancy; O36.8331 Maternal care for abnormalities of the fetal heart rate or rhythm, third trimester, fetus 1
CPT/HCPCS: 76815; 96360; 59025; 76819

== ENCOUNTER 2025-09-07 08:47 | Outpatient (CLI) | payer OTHER, SELFPAY ==
[2025-09-07 10:15] VITALS: BP 118/76; PULSE 93; TEMP 36.9
[2025-09-07 12:34] VITALS: BP 133/83; PULSE 93
--- NOTE | 2025-09-08 22:03 | W.OBNST ---
Date of service: 09/07/25 Time of Service: 17:00 NST Evaluation Reason for NST Reasons for Nonstress Test: GDM-INSULIN Gestational Age Gestational Age in Weeks and Days: 37 Weeks and 4Days Test and Monitor Explained Test/Monitor Explained: Test Explained, Monitor Explained and Patient Verbalized Understanding Urine Results Urine Protein: Positive Urine Ketones: Positive Urine Glucose: Negative Urine Blood: Negative NST Information Date on Monitor: 09/07/25 Time on Monitor: 10:13 Date off Monitor: 09/07/25 Time off Monitor: 10:35 Total Time on Monitor: 22 NST Interventions: None NST Evaluation Patient States Movement: Present FHR Baseline: 140 Variability: Moderate 6-25 bpm Accelerations: 15x15 Decelerations: None NST Results: Reactive Note Ultrasound Done: Biophysical Profile Provider that performed the study: Sabrina Garcia Is this a repeat study?: Yes Amniotic Fluid: 2 Muscle Tone: 2 Body Movements: 2 Breathing Movements: 2 NST Results: Reactive Total Biophysical Profile Score: 10 Coding for Biophysical Profile w/NST: Completed Exam. NST Note Note: Patient returns for follow-up testing from yesterday. She has no complaints today. Her NST is noted to be reactive and reassuring. I performed a BPP at bedside, today, and breathing is noted within the first 5 minutes of the ultrasound. The rest of the BPP was 8 out of 8. This testing is very reassuring. Patient will follow-up as scheduled. NST Reviewed and Verified by: Sabrina Garcia
== END 2025-09-07 10:54 ==
LOC: BCD 08:51 → OBS 10:05
PROVIDERS: PCP Nurse Practitioner Family; Visit Provider Obstetrics & Gynecology
DX: O24.414 Gestational diabetes mellitus in pregnancy, insulin controlled (principal); Z3A.37 37 weeks gestation of pregnancy
CPT/HCPCS: 59025

== ENCOUNTER 2025-09-10 07:14 | Outpatient (CLI) | payer OTHER, SELFPAY ==
[2025-09-10 13:23] VITALS: BP 128/75; PULSE 92; TEMP 36.8
[2025-09-10 13:45] LABS: Glucose Negative (Negative)
== END 2025-09-10 13:59 ==
LOC: BCD 07:14 → OBS 13:02
PROVIDERS: PCP Nurse Practitioner Family; Visit Provider Obstetrics & Gynecology
DX: O24.414 Gestational diabetes mellitus in pregnancy, insulin controlled (principal); Z3A.38 38 weeks gestation of pregnancy
CPT/HCPCS: 59025; 81003

== ENCOUNTER 2025-09-13 07:41 | Outpatient (CLI) | payer OTHER, SELFPAY ==
[2025-09-13 11:29] VITALS: BP 123/80
[2025-09-13 11:32] VITALS: BP 123/80; PULSE 72
[2025-09-13 17:54] VITALS: BP 123/80
--- NOTE | 2025-09-13 17:54 | W.OBNST ---
Date of service: 09/13/25 Time of Service: 11:30 NST Evaluation Reason for NST Reasons for Nonstress Test: GDM-INSULIN Gestational Age Gestational Age in Weeks and Days: 38 Weeks and 3Days Test and Monitor Explained Test/Monitor Explained: Test Explained Vital Signs Blood Pressure: 123/80 Urine Results Urine Protein: Negative Urine Ketones: Positive Urine Glucose: Negative Urine Blood: Negative NST Information Date on Monitor: 09/13/25 Time on Monitor: 11:08 Date off Monitor: 09/13/25 Time off Monitor: 11:38 Total Time on Monitor: 30 NST Interventions: None NST Evaluation Patient States Movement: Present Variability: Moderate 6-25 bpm Accelerations: 15x15 Decelerations: None NST Results: Reactive Note Ultrasound Done: N/A. NST Note NST Reviewed and Verified by: Gisel Fernandes
== END 2025-09-13 12:00 ==
LOC: BCD 07:42 → OBS 11:16
PROVIDERS: PCP Nurse Practitioner Family; Visit Provider Obstetrics & Gynecology
DX: O24.414 Gestational diabetes mellitus in pregnancy, insulin controlled (principal); Z3A.38 38 weeks gestation of pregnancy
CPT/HCPCS: 59025

== ENCOUNTER 2025-09-15 02:22 | Inpatient (IN) | payer OTHER, SELFPAY ==
[2025-09-15] VITALS (22 sets, daily range): BP systolic 102–133; BP diastolic 67–83; PULSE 73–145; RESP 16–18; TEMP 36–37.1; O2SAT 96–99
--- NOTE | 2025-09-15 02:38 | W.PM.OBHPL1 ---
Date of service: 09/15/25 Time of Service: 02:40 Assessment and Plan Assessment and plan (1) Uterine contractions: Status: Acute Assessment and plan: 35yo @38.5wks GA based on LMP confirmed by 1st trimester sono who presents with regular contractions and appears to be in early labor. Her was complicated by: 1. Significant anxiety 2. A2GDM 3. Rh neg status (2) GDM, class A2: Status: Acute Assessment and plan: Pt with GDM and need for insulin, now well controlled on 16U NPH Qpm, 10U Qam. She is aware of the need for monitoring in the baby pp. (3) HARLEY (generalized anxiety disorder): Status: Acute Assessment and plan: She has worked with psychiatrist, Dr. Cardoso, and it is currently managed with ativan 0.5mg prn at night. She takes it most nights, though not always. She has weaned down from 1mg earlier in . She tried numerous other medications during the without success. She is aware of the need to monitor the baby pp due to benzo use during . (4) Rh negative state in antepartum period: Status: Acute Assessment and plan: pp Rhogam OB-HPI Labor/Delivery History of Present Illness Reason for Visit: Labor Chief Complaint: Uterine Contractions. ROMY Calculator Estimated Delivery Date Method Current WG Current Estimate 09/24/25 LMP (Certain) 38w 5d Other Estimates 09/22/25 Ultrasound #1 39w 0d History of Present Expected Delivery Route/Plan - (GDM) FOB - Ralph Gomez (his first child) BG Specific Issues/Plan 1. Rh negative, 28 wk RhoGam given 07/02 2. Depression/anxiety, Panic attacks, usually at night, uses Ativan 1mg prn - Lexapro, increased to 30mg (EKG normal) - Seeing personal therapist and Ariana Arce weekly right now - Declines use of Wellbutrin, Buspar, and Atarax citing side effects - Talked with psychiatry 05/28 and felt good about their established plan - Ativan 1mg, plans to wean in a few weeks, hydroxyzine prn - 06/18/25: started Seroquel, has ativan prn and hopes to wean - 06/25/25: switched to mirtazepine due to restless legs with seroquel - 07/09/25: D/c'd Mirtazepine for daytime irritability; will continue 1 mg Ativan per psych. Verbalizes counseling on risks. - 07/16/25: Weaning lexapro to switch to venlafaxine, continuing ativan prn 3. Migraines, has compazine as rescue 4. Cardiac palpitations; intermittent. 5. Marginal cord insertion 1.5 cm from placental edge at 20 wks, plan interval growth scan @32wks- marginal insertion resolved at 32 weeks- efw 37%ILE AND EMELY - 16 6. GDM @ 29 wks - A2 - Meds: NPH 16U qhs, 10 qam - screening starting at 32 weeks - Serial growth US - 39wk induction CF/SMA carrier screen negative; cfDNA low risk - - - - - - - - - - - - - - - - Narrative: Pt says she had intermittent ctxs throughout the day yesterday and a lot of pelvic pressure with standing. She lost her mucus plug last evening and was having some irregular ctxs. She woke around 1am with more regular ctxs now about every 5min apart and more uncomfortable. Scant blood noted. No loss of fluid. Good movement. Review of Systems Constitutional Constitutional: Reports system reviewed and no additional complaints, except as documented Gastrointestinal Gastrointestinal: Denies nausea and Denies vomiting Genitourinary Genitourinary: Reports system reviewed and no additional complaints, except as documented Musculoskeletal Comments: +contractions PFSH All Active Problems (Updated 09/15/25 @ 02:49 by Gisel Fernandes MD) Uterine contractions (Acute) GDM, class A2 (Acute) Rh negative state in antepartum period (Acute) Migraine headache without aura (Acute) (Acute) Major depressive disorder (Chronic ~09/06/24) on SSRI x 11 years HARLEY (generalized anxiety disorder) (Acute) Osteoporosis (Chronic) 01/27/21 Dexa: Femoral head -2.2, LSpine -2.0 01/2021 [facility] Endocrinology. Increased dietary Ca recommended. No other medication changes. Hypokalemia (Chronic) Monitoring q3-6 mos due to malnutrition/malabsorption.. Heart palpitations (Acute) Increasing in frequency, intensity (episode of run when leaning forward last week) .. no CP, but uncomfortable. Medical History (Updated 09/15/25 @ 02:49 by Gisel Fernandes MD) Nonspecific paroxysmal spell History of miscarriage, currently Keratosis pilaris (~02/2022) 03/26/22 Dr Arciniega Acne vulgaris (~04/2019) 12/11/[address] Arciniega. Rx Spirolactone. 03/26/22 F/u w Dr Arciniega PMDD (premenstrual dysphoric disorder) Stress fracture, left foot, initial encounter for fracture via portal/xr/mri History of vitamin D deficiency Insufficiency fracture of tibia 12/2020. L tib/fib Internal derangement of left knee GERD (gastroesophageal reflux disease) PM .. Seen by ENT (Josey) .. Cholelithiasis Surgical History Hx of dental synagogue Gum grafting History of tonsillectomy (~1995) Cholecystectomy 2013 Family History Father Heart disease Hypertension Cancer bladder Depression Hyperlipidemia Kidney stones History of cholecystectomy Mother Asthma Daughter Asthma Aunt Breast cancer negative BRCA testing. Paternal Grandfather Lung cancer Heart disease Maternal Grandfather Non-Hodgkin lymphoma Diabetes Stroke Brother Depression Anxiety Social History Smoking/Tobacco Use Status: Never Smoking risk assessment performed?: Yes Alcohol Intake: current Alcohol Intake frequency: a few times a week Drug use: Never Substance use type: does not use Adopted: No Caregiver/Support person: No Household members: significant other, children and other Details: Sam Ward. 07/2024. BF - Ralph,together 1 yr. Housing: house Number of Children: 1 Communication Needs: None Education Level: college Details: Associates Do you need help understanding health information?: Never current occupation: RN, [employer] Sexually active: Yes Do you think of yourself as: straight/heterosexual Current gender identity: female What is your relationship status?: How often do you talk on the phone with friends or family?: twice per week How often do you get together with friends or relatives?: once per week How often do you attend moravian or quaker services?: decline to answer Do you belong to any clubs or organized social groups?: decline to answer Panel score (0-1 are the most socially isolated patients): 1 NHANES result reviewed/action taken: Yes What type of physical activity do you participate in: none Duration: < 15 minutes/day Frequency: does not exercise Carlee/Mosque: Lutheran Special carlee needs: No Seatbelt use: always Helmet use: Yes Helmet use: always Drive intox or ride w/intox national dedicated truck driver: No Firearms in home: Yes Firearms unloaded and locked: Yes Do you feel safe at home: Yes Do you feel safe in your relationship?: Yes Victim of physical abuse: No Victim of emotional abuse: No Victim of sexual abuse: No Would you like helpful sources: No Female Reproductive History Menstrual control method: none History History 4 Para 1 Hx # Term Pregnancies 1 Multiple births 0 Hx # Pregnancies 0 Ectopic pregnancies 0 AB induced 0 Hx Number of Living Children 1 AB spontaneous 2 Past Pregnancies Del. Date GA/Weeks # Preg Succ Route Wgt Sex Labor Lgth Anesthesia Location Prov Complic 12/29/14 No vaginal 7 lb 4 oz Female Anea THADDEUS 08/18/23 No 08/16/24 No Delivery Date: 12/29/14 Last Updated by: Gisel Fernandes MD Sylvia Delivery Date: 08/18/23 Last Updated by: Gisel Fernandes MD chemical pregnany. hCG never > 19mIU/ml Delivery Date: 08/16/24 Last Updated by: Janki Mai CNM SAB, no D and C Meds Allergies and Home Medications Allergies Allergy/AdvReac Type Severity Reaction Status Date / Time No Known Allergies Allergy Verified 09/10/25 14:11 Home Medications ?Medication ?Instructions ?Recorded ?Confirmed ?Type calcium 200 mg (as 2 tab PO DAILY 09/25/24 09/10/25 History citrate)-vitamin D3 6.25 mcg (250 unit) tablet prochlorperazine maleate 5 mg 5 mg PO BID PRN nausea and 02/12/25 09/10/25 Rx tablet vomiting #30 tabs vits no.126-ferrous fum 1 tab PO DAILY 03/26/25 09/10/25 History 28 mg iron-folic acid 800 mcg tablet (Classic ) lorazepam 0.5 mg tablet 0.5 mg PO DAILY PRN anxiety #30 03/27/25 09/13/25 Rx tabs hydroxyzine HCl 25 mg tablet 25 mg PO QHS #10 tabs 05/19/25 09/10/25 Rx lorazepam 1 mg tablet 1 mg PO TID PRN anxiety #14 tabs 06/04/25 09/10/25 Rx ondansetron 4 mg disintegrating 4 mg PO Q8H PRN Nausea #20 tabs 06/04/25 09/10/25 Rx tablet blood-glucose meter (Contour Next #1 ea 07/02/25 09/10/25 Rx EZ Meter kit) venlafaxine 150 mg 150 mg PO DAILY 07/30/25 09/10/25 History capsule,extended release 24 hr pen needle, diabetic 32 gauge x #100 ea 08/06/25 09/10/25 Rx /32 (Advocate Pen Needle) insulin NPH isoph U-100 human 100 14 unit subcut QPM 08/16/25 09/13/25 History unit/mL (3 mL) subcutaneous pen (Humulin N NPH U-100 Insulin KwikPen) insulin NPH isoph U-100 human 100 10 unit (0.1 mL) subcut QAM #15 mL 09/10/25 09/13/25 Rx unit/mL (3 mL) subcutaneous pen (Humulin N NPH U-100 Insulin KwikPen) Exam Physical Exam Vital signs: Pulse BP Pulse Ox 92 H 133/83 97 09/15/25 02:33 09/15/25 02:33 09/15/25 02:33 Vital Signs Reviewed: Yes Detailed Labor and Delivery Exam Dilation: 4 Effacement (%): 70 station: -1 Cervix position: mid Consistency: medium Ayoub Score: Cervical Points Exam 0 1 2 3 Dilation Closed 1-2cm 3-4 cm 5-6cm Effacement 0-30% 40-50% 60-70% 80% Consistency Firm Medium Soft Station -3 -2 -1,0 +1,+2 Position Posterior Mid Anterior Amniotic Membrane Status: Intact Contraction Frequency(min): q4min Fetus A Heart Rate Baseline: 125 Monitor Accelerations: 15 X 15 Monitor Decelerations: None Variability: Moderate (6-25 BPM) Presentation: Cephalic Categories: Category I Detailed HEENT Exam Head: Present normocephalic and atraumatic Detailed Abdominal Exam Comments: gravid, nontender Detailed Neurological Exam Neurological: Present alert, oriented X3 and CN II-XII intact DetailedPsychiatric Exam Psychiatric: Present normal affect, normal thought process and cooperative Results Results Group Beta Strep: Negative Blood Type: O- Rubella Status: Immune Varicella Immunity: Immune Risk Assessment Risk for Shoulder Dystocia Historical/Initial OB: NEGATIVE FOR: Pelvic Abnormality, Pre- BMI>30, Previous Shoulder Dystocia or Previous Macrosomia Risk for Pre-Eclampsia Date Initiated/Initials: not indicated. JK Yes, if one or more: NEGATIVE FOR: Hx Pre-E/Gest HTN, Chronic HTN, Multiple Gestation, Pre-gestational DM, Renal Disease, Systemic Lupus or APA Syndrome Yes, if 2 or more: POSITIVE FOR: >10yr btwn pregnancies; NEGATIVE FOR: Nulliparity, Age>= 35 yrs, BMI>30, ethinicty, Mother/Sister w/ Pre-E or Previous IUGR Risk for Post- Hemorrhage Initial: NEGATIVE FOR: Multiple Gestation, Previous PPH, Known Clotting Deficiency, Grand Multiparity or Anticoagulation Risks Reviewed Risks Reviewed Upon Admission: Yes
[2025-09-15 03:14] LABS: Abs Immature Grans 0.09 10^3/uL (0.0-0.06); HCT 32.9 % (36.0-46.0); HGB 11.2 g/dL (11.2-15.7); Immature Grans % 0.9 %; MCH 30.0 pg (27.0-33.0); MCHC 34.0 % (32.0-36.0); MCV 88 fL (80-95); MPV 11.3 fL (8.0-11.0); Platelet Count 158 10^3/uL (130-400); RBC 3.73 10^6/uL (3.93-5.22); RDW 13.4 % (11.7-14.6); RDW-SD 43.8 fL; WBC 10.55 10^3/uL (4.4-10.8)
--- NOTE | 2025-09-15 04:23 | W.PM.OBNL1 ---
Date of service: 09/15/25 Time of Service: 04:23 Pelvic Exam Dilation: 6 Effacement (%): 90 station: 0 Nitrazine: Positive Comments: Small amount of clear fluid leakage, bulging bag felt on exam and AROM performed to blood-tinged fluid. Contractions Contraction Frequency(min): q3min Fetus A Heart Rate Baseline: 130 Assessment and Plan Assessment and plan (1) Uterine contractions: Status: Acute Assessment and plan: P1 @ 38.5wks in spontaneous labor, now ruptured. Coping well with nitrous. Declines other pain management right now. status reassuring via intermittent monitoring. Objective Abnormal lab results 09/15/25 Range/Units 03:00 RBC 3.73 L (3.93-5.22) 10^6/uL Hct 32.9 L (36.0-46.0) % MPV 11.3 H (8.0-11.0) fL Absolute Neutrophils 7.52 H (1.2-6.7) 10^3/uL Absolute Monocytes 1.00 H (0.1-0.8) 10^3/uL Temp Pulse Resp BP Pulse Ox 98.1 F 92 H 18 133/83 97 09/15/25 02:38 09/15/25 02:38 09/15/25 02:38 09/15/25 02:38 09/15/25 02:38 Laboratory Results WBC 10.55 10^3/uL (4.4-10.8) 09/15/25 03:00 RBC 3.73 10^6/uL (3.93-5.22) L 09/15/25 03:00 Hgb 11.2 g/dL (11.2-15.7) 09/15/25 03:00 Hct 32.9 % (36.0-46.0) L 09/15/25 03:00 MCV 88 fL (80-95) 09/15/25 03:00 MCH 30.0 pg (27.0-33.0) 09/15/25 03:00 MCHC 34.0 % (32.0-36.0) 09/15/25 03:00 RDW 13.4 % (11.7-14.6) 09/15/25 03:00 Plt Count 158 10^3/uL (130-400) 09/15/25 03:00 MPV 11.3 fL (8.0-11.0) H 09/15/25 03:00 Immature Gran % 0.9 % 09/15/25 03:00 Neutrophils % 71.1 % 09/15/25 03:00 Lymphocytes % 17.2 % 09/15/25 03:00 Monocytes % 9.5 % 09/15/25 03:00 Eosinophils % 0.9 % 09/15/25 03:00 Basophils % 0.4 % 09/15/25 03:00 Nucleated RBC % 0.0 % (0.0-0.3) 09/15/25 03:00 Absolute Neutrophils 7.52 10^3/uL (1.2-6.7) H 09/15/25 03:00 Absolute Lymphocytes 1.81 10^3/uL (1.2-3.4) 09/15/25 03:00 Absolute Monocytes 1.00 10^3/uL (0.1-0.8) H 09/15/25 03:00 Absolute Eosinophils 0.09 10^3/uL (0.0-0.7) 09/15/25 03:00 Absolute Basophils 0.04 10^3/uL (0.0-0.2) 09/15/25 03:00 ABO/Rh O Negative 09/15/25 03:00 Antibody Screen NEGATIVE 09/15/25 03:00 Vital Signs Reviewed: Yes Subjective Interval history since last seen: Pt thinks she broke her water. Feeling more pressure and more intense contractions. Results Hemoglobin/Hematocrit: Hgb 11.2 g/dL (11.2-15.7) 09/15/25 03:00 Hct 32.9 % (36.0-46.0) L 09/15/25 03:00 Abnormal Lab Findings: Abnormal Labs 09/15/25 03:00 RBC 3.73 L Hct 32.9 L MPV 11.3 H Absolute Neutrophils 7.52 H Absolute Monocytes 1.00 H
[2025-09-15] MEDS: Oxytocin 10 UNITS/ML VIAL IM (05:50)
[2025-09-15] MEDS: miSOPROStol 200 MCG TAB 800 MCG PR (05:54)
--- NOTE | 2025-09-15 06:12 | OBVDS_ITS ---
Date of service: 09/15/25 Time of Service: 06:13 OB Labor/ Delivery Information Baby A Delivery Delivery Method: Spontaneaous Presentation: Cephalic Vertex Position: Left Occipital Anterior Amniotic Fluid: [place] Tinged and Meconium Estimated Blood Loss: 950 Quantitative Blood Loss: 1000ml in bag but some urine mixed in Delivery Outcome: Liveborn Note: The pt arrived in spontaneous labor and progressed to 9cm with involuntary pushing. She quickly progressed to and pushed for a few minutes to deliver the 's head in KIARRA position followed by the shoulders and the rest of the body. The baby was placed on mom's abdomen. After >1min the cord was clamped x2 and cut. Cord blood collected. The placenta delivered with gentle cord traction and fundal massage and appeared intact with a 3 vessel cord and noted marginal cord insertion. Fundus was firm initially but then she had increased bleeding. She attempted to urinate spontaneously but continued to bleed so her bladder was catheterized for 150ml of clear urine. She was given 800mcg of misoprostol rectally. The bleeding slowed and her fundus became firm. Bleeding remained minimal. Mom and baby stable at time of note. Providers Doctor: Gisel Fernandes Nurse: Pat Meza Labor/Delivery Information Group Beta Strep: Negative Rubella Status: Immune Blood Type: O- Varicella Immunity: Immune Shoulder Dystocia: No Stages of Labor Onset of Labor Date: 09/15/25 Onset of Labor Time: 01:00 ROM Baby A: 09/15/25 ROM Baby A: 04:20 Infant Delivery Date-Baby A: 09/15/25 Infant Delivery Time-Baby A: 05:41 Placenta Delivery Date-Baby A: 09/15/25 Placenta Delivery Time-Baby A: 05:47 Labor-Stage 3 Duration: 6 minutes Total Length of Labor-Baby A: 4 hours and 41 minutes Placenta Status: Delivered Baby A Gender: Female Gestational Status: Early Term (37-38.6 wks) Gestational Age in Weeks/Days: 38 Weeks and 5 Days
[2025-09-15] MEDS: Acetaminophen 325 MG TAB 650 MG PO ×3 (06:21→21:50)
--- NOTE | 2025-09-15 06:28 | W.OBNST ---
Date of service: 09/13/25 Time of Service: 02:30 NST Evaluation Reason for NST Reasons for Nonstress Test: OTHER, SEE COMMENT Reason for NST Other: rule out labor Gestational Age Gestational Age in Weeks and Days: 38 Weeks and 5Days Test and Monitor Explained Test/Monitor Explained: Test Explained, Monitor Explained and Patient Verbalized Understanding Vital Signs Blood Pressure: 133/83 Pulse: 87 Temperature: 98.1 F Weight: 180 lb NST Information Date on Monitor: 09/15/25 Time on Monitor: 02:20 Date off Monitor: 09/15/25 Time off Monitor: 02:46 Total Time on Monitor: 26 NST Interventions: PO Hydration Contraction Frequency: 4-5 min NST Evaluation Patient States Movement: Present FHR Baseline: 130 Variability: Moderate 6-25 bpm Accelerations: 15x15 Decelerations: Variable NST Results: Reactive Note Ultrasound Done: N/A. NST Note NST Reviewed and Verified by: Gisel Fernandes
[2025-09-15] MEDS: Ibuprofen 600 MG TAB PO ×3 (09:00→21:51)
[2025-09-15] MEDS: Dibucaine 1% 28 GM TUBE TP (10:11)
[2025-09-15] MEDS: Hamamelis Leaf/Glycerin 100 EACH BOX PR (10:12)
[2025-09-15] MEDS: Venlafaxine 75 MG CAPCR PO (20:29)
[2025-09-15] MEDS: Venlafaxine 150 MG CAPCR PO (20:29)
[2025-09-16 07:46] VITALS: BP 135/82; PULSE 103; TEMP 36.6; O2SAT 97
[2025-09-16] MEDS: Acetaminophen 325 MG TAB 650 MG PO ×2 (10:24→18:32)
[2025-09-16] MEDS: Ibuprofen 600 MG TAB PO ×2 (10:25→18:32)
[2025-09-16 10:34] LABS: Abs Immature Grans 0.15 10^3/uL (0.0-0.06); HCT 29.8 % (36.0-46.0); HGB 10.1 g/dL (11.2-15.7); Immature Grans % 1.1 %; MCH 30.2 pg (27.0-33.0); MCHC 33.9 % (32.0-36.0); MCV 89 fL (80-95); MPV 11.2 fL (8.0-11.0); Platelet Count 204 10^3/uL (130-400); RBC 3.34 10^6/uL (3.93-5.22); RDW 13.7 % (11.7-14.6); RDW-SD 45.1 fL; WBC 13.62 10^3/uL (4.4-10.8)
[2025-09-16] MEDS: RHO(D) Immune Globulin 1,500 UNIT Syringe 1500 UNIT IM (14:18)
[2025-09-16 14:24] VITALS: BP 119/96; PULSE 103; TEMP 36.7
[2025-09-16 18:33] VITALS: BP 140/95; PULSE 103; TEMP 36.7
--- NOTE | 2025-09-16 18:35 | W.PM.OBPNV1 ---
Date of service: 09/16/25 Time of Service: 18:36 Assessment and Plan Assessment and plan (1) care and examination immediately after delivery: Status: Acute Assessment and plan: Pt is a 35yo P2 PPD#1 s/p spontaneous labor and uncomplicated NVD. She is doing well overall. Her was complicated by A2GDM and significant anxiety managed with venlafaxine and ativan. Anticipate d/c home tomorrow ppd#2. Subjective Subjective Narrative: Piedad reports she is feeling well. Minimal lochia. Meghna regular diet w/out issue. Breast feeding is going ok. mood is good. Pain is well controlled. Exam Physical Exam Vital signs: Temp Pulse Resp BP Pulse Ox 98.1 F 103 H 97 H 140/95 H 96 09/16/25 18:33 09/16/25 18:33 09/16/25 07:46 09/16/25 18:33 09/15/25 21:00 Vital Signs Reviewed: Yes Constitutional Constitutional: no acute distress and cooperative Detailed HEENT Exam Head: Present normocephalic and atraumatic Respiratory Exam Respiratory Exam: Normal Abdominal Exam Abdomen: Tender (mildly) Fundal Exam Fundus: Below Umbilicus and Firm Extremities Exam Extremity Exam: negative Calf Tenderness or Edema Detailed Neurological Exam Neurological: Present alert, oriented X3 and CN II-XII intact Results Hemoglobin/Hematocrit: Hgb 10.1 g/dL (11.2-15.7) L 09/16/25 10:25 Hct 29.8 % (36.0-46.0) L 09/16/25 10:25 Abnormal Lab Findings: Abnormal Labs 09/15/25 09/16/25 03:00 10:25 WBC 13.62 H RBC 3.73 L 3.34 L Hgb 10.1 L Hct 32.9 L 29.8 L MPV 11.3 H 11.2 H Absolute Neutrophils 7.52 H 9.59 H Absolute Monocytes 1.00 H 1.06 H
[2025-09-16 18:37] VITALS: BP 131/88; PULSE 116
[2025-09-16] MEDS: Venlafaxine 150 MG CAPCR PO (19:37)
[2025-09-16] MEDS: Venlafaxine 75 MG CAPCR PO (19:38)
[2025-09-16 19:52] VITALS: BP 117/79; PULSE 102; RESP 16; TEMP 36.6; O2SAT 98
[2025-09-16 23:57] VITALS: BP 119/87; PULSE 95; RESP 16; O2SAT 98
[2025-09-17 08:39] VITALS: BP 118/84; PULSE 85; RESP 18; TEMP 36.6; O2SAT 98
[2025-09-17] MEDS: Ibuprofen 600 MG TAB PO (09:22)
--- NOTE | 2025-09-17 13:17 | W.PM.OBPNV1 ---
Date of service: 09/17/25 Time of Service: 13:17 Assessment and Plan Assessment and plan (1) Normal spontaneous vaginal delivery: Status: Acute Assessment and plan: day #2 status postnormal spontaneous vaginal delivery. complicated by insulin requiring gestational diabetes. Appropriate glycemic control. Will discharge home today, follow-up in 2 and 6 weeks. Hold insulin at this point. 2-hour glucose tolerance test at the 6-week check. Subjective Subjective Interval history: Patient seen and examined. Doing well. Ready for discharge. Hemoglobin is stable. Fasting glucose was normal. At this point, she will discontinue her insulin use. She will have a 2-hour glucose tolerance test around the 6 weeks. She will be seen in the office in 2 and 6 weeks for visits. Patient's Mood: Appropriate [place] baby status: Doing well and Nursing well Exam Physical Exam Vital signs: Temp Pulse Resp BP Pulse Ox 97.9 F 85 18 118/84 98 09/17/25 08:39 09/17/25 08:39 09/17/25 08:39 09/17/25 08:39 09/17/25 08:39 HEENT Exam HEENT Exam: Normal Respiratory Exam Respiratory Exam: Normal Cardiovascular Exam Cardiovascular Exam: Normal Fundal Exam Fundus: Below Umbilicus and Firm Extremities Exam Extremity Exam: Normal; negative Calf Tenderness Results Hemoglobin/Hematocrit: Hgb 10.1 g/dL (11.2-15.7) L 09/16/25 10:25 Hct 29.8 % (36.0-46.0) L 09/16/25 10:25 Abnormal Lab Findings: Abnormal Labs 09/15/25 09/16/25 03:00 10:25 WBC 13.62 H RBC 3.73 L 3.34 L Hgb 10.1 L Hct 32.9 L 29.8 L MPV 11.3 H 11.2 H Absolute Neutrophils 7.52 H 9.59 H Absolute Monocytes 1.00 H 1.06 H
--- NOTE | 2025-09-17 13:22 | DSE_ITS ---
Date of service: 09/17/25 Time of Service: 13:22 DS: Diagnosis Discharge Diagnosis (1) Normal spontaneous vaginal delivery: Status: Acute Asessment and Plan: day #2 doing well. Discharge home. Follow-up in 2 and 6 weeks. Discharge Plan Disposition Patient Disposition: Home Condition: Good Discharge Details Reason For Visit: Labor Admit Date/Time: 09/15/25 02:33 Admit Provider: Gisel Fernandes Attending Provider: Gisel Fernandes Primary Care Provider: Shreyas Boyer Hospital Course Hospital Course: Patient presented in spontaneous active labor. Overall, had a normal vaginal delivery with a slightly elevated blood loss. Post delivery CBC is appropriate. She had a normal fasting glucose . She is discharged home day #2 ambulating, tolerating regular diet and oral pain medication with stable vital signs. Home Meds and New Rx's Prescriptions: No Action (DME) pen needle, diabetic [Advocate Pen Needle] 32 gauge x 5/32 needle See Rx Instructions .Route Qty: 100 1RF Rx Instructions: nightly Humulin N NPH Insulin KwikPen 100 unit/mL (3 mL) insulin pen 14 unit subcut QPM Patient Comments: 18 units per pt prochlorperazine maleate 5 mg tablet 5 mg PO BID PRN (Reason: nausea and vomiting) Qty: 30 5RF Classic 28 mg iron- 800 mcg tablet 1 tab PO DAILY venlafaxine 150 mg capsule,extended release 24hr 150 mg PO DAILY Humulin N NPH Insulin KwikPen 100 unit/mL (3 mL) insulin pen 10 unit subcut QAM Qty: 15 1RF calcium citrate-vitamin D3 200 mg-6.25 mcg (250 unit) tablet 2 tab PO DAILY Rx Instructions: 03/13/21 [facility] [place] [facility] Total goal with food is 1200 mg Calcium daily. mk lorazepam 0.5 mg tablet 0.5 mg PO DAILY PRN (Reason: anxiety) Qty: 30 0RF hydroxyzine HCl 25 mg tablet 25 mg PO QHS Qty: 10 0RF lorazepam 1 mg tablet 1 mg PO TID PRN (Reason: anxiety) Qty: 14 0RF ondansetron 4 mg tablet,disintegrating 4 mg PO Q8H PRN (Reason: Nausea) Qty: 20 1RF (DME) blood-glucose meter [Contour Next EZ Meter] Kit See Rx Instructions .Route Qty: 1 0RF Rx Instructions: As directed Discharge Instructions Stand Alone Forms: BC Instructions, BC Post Vaginal Deliver, Portal Information Activity:: Pelvic rest Equipment/Supplies:: No Equipment Needed Diet:: As Tolerated Discharge Orders Discharge Orders: Discharge Order (Routine); Ordered 09/17/25 Ordered By: Mckenzie Webb OB:DS Summary Summary Vaginal Delivery Method: Spontaneaous Episiotomy Description: None Laceration Description: None Laceration Extension: N/A Contraception Discussed Contraception Discussed: Yes, Gender-Baby A: Female Status at Discharge Functional status at discharge: independent ambulation Overall status at discharge: patient is back to baseline Mental Status: mental status grossly normal Speech and Movement: speech and movement normal Mood: congruent mood Affect: normal affect Exam Physical Exam Vital signs: Temp Pulse Resp BP Pulse Ox 97.9 F 85 18 118/84 98 09/17/25 08:39 09/17/25 08:39 09/17/25 08:39 09/17/25 08:39 09/17/25 08:39 Narrative: See physical exam from progress note dated 09/17/2025 [facility] All Active Problems (Updated 09/17/25 @ 13:18 by Mckenzie Webb DO) Normal spontaneous vaginal delivery (Acute) care and examination immediately after delivery (Acute) Rh negative state in antepartum period (Acute) Migraine headache without aura (Acute) Major depressive disorder (Chronic ~09/06/24) on SSRI x 11 years HARLEY (generalized anxiety disorder) (Acute) Heart palpitations (Acute) Increasing in frequency, intensity (episode of run when leaning forward last week) .. no CP, but uncomfortable. Hypokalemia (Chronic) Monitoring q3-6 mos due to malnutrition/malabsorption.. Osteoporosis (Chronic) 01/27/21 Dexa: Femoral head -2.2, LSpine -2.0 01/2021 [facility] [place] [facility]. Increased dietary Ca recommended. No other medication changes. Medical History (Updated 09/17/25 @ 13:18 by Mckenzie Webb DO) GDM, class A2 Keratosis pilaris (~02/2022) 03/26/22 Dr Arciniega Acne vulgaris (~04/2019) 12/11/[address] Arciniega. Rx Spirolactone. 03/26/22 F/u w Dr Arciniega Nonspecific paroxysmal spell PMDD (premenstrual dysphoric disorder) Stress fracture, left foot, initial encounter for fracture via portal/xr/mri History of vitamin D deficiency Insufficiency fracture of tibia 12/2020. L tib/fib Internal derangement of left knee GERD (gastroesophageal reflux disease) PM .. Seen by ENT (Josey) .. Cholelithiasis Surgical History Hx of dental sabianism Gum grafting History of tonsillectomy (~1995) Cholecystectomy 2014 Family History Father Heart disease Hypertension Cancer bladder Depression Hyperlipidemia Kidney stones History of cholecystectomy Mother Asthma Daughter Asthma Aunt Breast cancer negative BRCA testing. Paternal Grandfather Lung cancer Heart disease Maternal Grandfather Non-Hodgkin lymphoma Diabetes Stroke Brother Depression Anxiety Social History Smoking/Tobacco Use Status: Never Smoking risk assessment performed?: Yes Alcohol Intake: current Alcohol Intake frequency: a few times a week Drug use: Never Substance use type: does not use Adopted: No Caregiver/Support person: No Household members: significant other, children and other Details: Sam Ward. 07/2024. YANIRA Rosas,together 1 yr. Housing: house Number of Children: 1 Communication Needs: None Education Level: college Details: Associates Do you need help understanding health information?: Never current occupation: RN, [employer] Sexually active: Yes Do you think of yourself as: straight/heterosexual Current gender identity: female What is your relationship status?: How often do you talk on the phone with friends or family?: twice per week How often do you get together with friends or relatives?: once per week How often do you attend congregational or druze services?: decline to answer Do you belong to any clubs or organized social groups?: decline to answer Panel score (0-1 are the most socially isolated patients): 1 NHANES result reviewed/action taken: Yes What type of physical activity do you participate in: none Duration: < 15 minutes/day Frequency: does not exercise Carlee/Mandaeism: Roman Catholic Special carlee needs: No Seatbelt use: always Helmet use: Yes Helmet use: always Drive intox or ride w/intox driver's education instructor: No Firearms in home: Yes Firearms unloaded and locked: Yes Do you feel safe at home: Yes Do you feel safe in your relationship?: Yes Victim of physical abuse: No Victim of emotional abuse: No Victim of sexual abuse: No Would you like helpful sources: No Female Reproductive History Menstrual control method: none History History 4 Para 2 Hx # Term Pregnancies 2 Multiple births 0 Hx # Pregnancies 0 Ectopic pregnancies 0 AB induced 0 Hx Number of Living Children 2 AB spontaneous 2 Past Pregnancies Del. Date GA/Weeks # Preg Succ Route Wgt Sex Labor Lgth Anesth esia Location Prov Complic 12/29/14 No vaginal 7 lb 4 oz Female Anea CNLouie 08/18/23 No 08/16/24 No 09/15/25 38 Yes vaginal 4 hours and 41 minutes Dena Delivery Date: 12/29/14 Last Updated by: Gisel Fernandes MD Sylvia Delivery Date: 08/18/23 Last Updated by: Gisel Fernandes MD chemical pregnany. hCG never > 19mIU/ml Delivery Date: 08/16/24 Last Updated by: Janki Mai CNM SAB, no D and C DS: Data Vitals/I&O Vitals and I&O: Vital Signs Temperature 97.9 F 09/17/25 08:39 Temperature 98.1 F 09/15/25 06:29 Temperature Source Oral 09/17/25 08:39 Pulse 85 09/17/25 08:39 Pulse 87 09/15/25 06:29 Pulse Rhythm Regular 09/17/25 08:39 Respiratory Rate 18 09/17/25 08:39 Respiratory Depth Normal 09/16/25 07:45 Blood Pressure 118/84 09/17/25 08:39 Blood Pressure 133/83 09/15/25 06:29 Blood Pressure Mean 95 09/17/25 08:39 Pulse Oximetry 98 09/17/25 08:39 Oxygen Delivery Method Room Air 09/15/25 02:38 Oxygen Flow Rate 0 09/15/25 02:38 Pain Level 2 09/15/25 16:56 Data Completed and Pending Pending Labs at Discharge: 09/15/25 09/16/25 03:00 10:25 WBC 10.55 13.62 H RBC 3.73 L 3.34 L Hgb 11.2 10.1 L Hct 32.9 L 29.8 L MCV 88 89 MCH 30.0 30.2 MCHC 34.0 33.9 RDW 13.4 13.7 Plt Count 158 204 MPV 11.3 H 11.2 H Immature Gran % 0.9 1.1 Neutrophils % 71.1 70.4 Lymphocytes % 17.2 19.1 Monocytes % 9.5 7.8 Eosinophils % 0.9 1.1 Basophils % 0.4 0.5 Nucleated RBC % 0.0 0.0 Absolute Neutrophils 7.52 H 9.59 H Absolute Lymphocytes 1.81 2.60 Absolute Monocytes 1.00 H 1.06 H Absolute Eosinophils 0.09 0.15 Absolute Basophils 0.04 0.07 Volume Blood Pending Kleihauer-Betke F Hgb Pending Doses of RhIG Required Pending ABO/Rh O Negative Antibody Screen NEGATIVE Screen Positive Rhogam Unit Number [id number] Unit Expiration Date 01/28/26 Product Lot # [id number]
[2025-09-18 09:38] LABS: Kleihauer Test POSITIVE; mL F/M Hemorrhage 4.5
[2025-09-18 09:39] LABS: Dose of RhIg 1
== END 2025-09-17 13:15 | disposition home or self-care (01) | DRG 806 ==
PROVIDERS: Obstetrics & Gynecology; Admitting Provider Obstetrics & Gynecology; PCP Nurse Practitioner Family; Visit Provider Obstetrics & Gynecology
DX: O24.414 Gestational diabetes mellitus in pregnancy, insulin controlled (principal); O99.354 Diseases of the nervous system complicating childbirth; Z37.0 Single live birth; Z67.91 Unspecified blood type, Rh negative; Z3A.38 38 weeks gestation of pregnancy; O99.62 Diseases of the digestive system complicating childbirth; O26.893 Other specified pregnancy related conditions, third trimester; O99.344 Other mental disorders complicating childbirth; O99.284 Endocrine, nutritional and metabolic diseases complicating childbirth; O69.89X0 Labor and delivery complicated by other cord complications, not applicable or unspecified; O77.0 Labor and delivery complicated by meconium in amniotic fluid; G43.009 Migraine without aura, not intractable, without status migrainosus; M81.8 Other osteoporosis without current pathological fracture; F41.0 Panic disorder [episodic paroxysmal anxiety]; F32.9 Major depressive disorder, single episode, unspecified; E87.6 Hypokalemia; R00.2 Palpitations; K21.9 Gastro-esophageal reflux disease without esophagitis
CPT/HCPCS: 36415; 85461; 86850; 86900; 86901; 90384; 59025; 85025; 85460; J2590; J2790